=== PATIENT | female | born 1980 | race Caucasian/White ===

== ENCOUNTER 2019-09-11 11:24 | Outpatient (CLI) | payer MEDICARE, BC, MEDICAID ==
--- NOTE | 2019-09-11 11:54 | RAD ---
2 views chest: 09/11/2019 COMPARISON: None HISTORY: Cough FINDINGS: There is prominent dextroscoliosis of the lower thoracic spine with associated Underwood r ods extending from the upper thoracic spine through the lower lumbar spine. There is prominence of the cardiac silhouette which may in part be artifactual secondary to the distortion of the chest on t he basis of scoliosis. No pneumothorax or pleural fluid. No focal consolidation or alveolar edema. IMPRESSION: No radiographic evidence of acute cardiopulmonary disease.
== END 2019-09-11 11:25 | disposition home or self-care (01) ==
LOC: BICRAD 11:24
PROVIDERS: ATTEND Internal Medicine
DX: R05 Cough (principal)
CPT/HCPCS: 71046

== ENCOUNTER 2019-12-25 14:48 | Outpatient (CLI) | payer MEDICARE, BC, MEDICAID ==
--- NOTE | 2019-12-25 15:27 | RAD ---
Exam:3 views right ankle HISTORY: Pain. COMPARISON: None FINDINGS: Mild bony mineralization. Preserved joint spaces. Nonspecific soft tissue swelling. No eros charisse or destructive changes. IMPRESSION: 1. Soft tissue swelling. Diffuse bony mineralization. If there is concern for cellulitis/osteomyeliti s, consider MRI
--- NOTE | 2019-12-25 15:28 | RAD ---
XR Foot Rt 3 View STANDARD INDICATION: Right foot pain . COMPARISON: None. FINDINGS: Bones: There is a dorsal and medial impaction fracture involving distal aspect of the medial cuneifor m. The distal articular surface of the medial cuneiform is impacted approximately 4 mm. No additional fracture is evident. The toes of the second through fifth digits are held in flexion limit ing the exam. Joints: Joints spaces appear preserved. Lisfranc alignment: Lisfranc alignment appears within normal limits. Soft tissues: There is soft tissue swelling surrounding the forefoot and midfoot IMPRESSION: Medial cuneiform fracture of the right foot.
== END 2019-12-25 14:49 | disposition home or self-care (01) ==
LOC: BICRAD 14:48
PROVIDERS: ATTEND Physician Assistant
DX: M25.571 Pain in right ankle and joints of right foot (principal); M79.671 Pain in right foot; M25.474 Effusion, right foot; S92.241A Displaced fracture of medial cuneiform of right foot, initial encounter for closed fracture; M79.89 Other specified soft tissue disorders

== ENCOUNTER 2020-10-01 10:25 | Inpatient (IN) | payer BC, MEDICARE ==
--- NOTE | 2020-10-01 11:00 | RAD ---
Exam: Chest one view HISTORY:Evaluate for possible emergency dialysis Comparison: 09/11/2019 FINDINGS: Cardiac silhouette:Cardiomegaly. Aorta: Unremarkable Pulmonary vessels: Normal Costophrenic angles: Clear LUNGS: Chronic changes, without mass or consolidation. Pneumothorax: None Osseous abnormalities: Stable scoliosis with Underwood rods. IMPRESSION: No acute cardiopulmonary process.
[2020-10-01 11:51] LABS: #Eosinphils 0.1 thou/uL (0.0-0.7); #Monocytes 0.6 thou/uL (0.11-0.59); #Neutrophils 4.4 thou/uL (1.40-6.50); %Basophils 0.7 % (0.0-1.0); %Eosinophils 2.2 % (0.0-10.0); %Lymphocytes 16.1 % (21.0-51.0); %Monocytes 9.2 % (0.0-10.0); %Neutrophils 71.8 % (42.0-75.0); Hemoglobin 9.7 g/dL (12.0-16.0); Mean Corpuscular HGB CONC 32.3 g/dL (32.0-36.0); Mean Corpuscular Hemoglobin 30.6 pg (27.0-31.0); Mean Corpuscular Volume 94.8 fL (78.0-98.0); Mean Platelet Volume 6.4 fL (7.4-10.4); Platelet Count 210 thou/uL (130-400); RBC Distribution Width 11.7 % (11.5-14.5); Red Blood Cell (RBC) Count 3.16 mill/uL (4.20-5.40); White Blood Cell (WBC) Count 6.2 thou/uL (4.8-10.8)
[2020-10-01 12:21] LABS: Bacteria/HPF None Seen HPF (None Seen); Bilirubin Negative (Negative); Blood, Urine Negative (Negative); Clarity Clear (Clear); Glucose, Urine (Dipstick) Normal (Negative); Ketone, Urine Trace mg/dL (Negative); Leukocyte 25 Leu/uL (Negative); Nitrite Negative (Negative); Protein, Urine (Dipstick) Negative (Neg-Trace); RBC/HPF 0-3 HPF (0-3); Specific Gravity, Urine 1.006 (1.002-1.036); Squamous Epithelial 0-3 HPF (0-3); Urobilinogen Normal mg/dL (Less than 2); WBC/HPF 0-3 HPF (0-3)
[2020-10-01 12:36] LABS: Phosphorus 5.7 mg/dL (2.3-4.7)
[2020-10-01 12:37] LABS: ALT (SGPT) 44 U/L (8-55); AST (SGOT) 43 U/L (5-34); Albumin 4.4 g/dL (3.5-5.0); Alkaline Phosphatase 104 U/L (40-110); Anion Gap 15 mmol/L (10-20); BUN (Urea Nitrogen) 85 mg/dL (7.0-18.7); Bilirubin, Total 0.2 mg/dL (0.2-1.2); Calc. Creatinine Clearance 0 mL/min (70-130); Calcium 9.3 mg/dL (7.8-10.44); Carbon Dioxide 30 mmol/L (22-29); Chloride 97 mmol/L (98-107); Estimated GFR-MDRD 18; Globulin 4.1 g/dL (2.4-3.5); Glucose 113 mg/dL (70-105); Potassium 5.2 mmol/L (3.5-5.1); Protein, Total 8.5 g/dL (6.0-8.3); Sodium 137 mmol/L (136-145)
--- NOTE | 2020-10-01 19:49 | PDOC.HHP ---
Hospitalist HPI - History of Present Illness Referred by nephrology for emergency dialysis for History of Present Illness: This is a 39-year-old female patient with a history of Rett syndrome, CKD and hypertension who presents today with worsening renal function and referral for surgery for initiation of dialysis. Given her Rett syndrome, she does not communicate verbally at baseline. Her mother will give the history. She has been in her usual state of health but however since the past several years have developed worsening renal function and is followed by Dr. Ramirez her hand splitter. Dr. Ramirez actually decided the need for dialysis and therefore sent her here for surgical preparation. She otherwise has no acute concerns. At presentation her vitals were within normal limits, labs showed anemia of 9.7, potassium 5.2, creatinine 2.95 and bicarb of 30. Chest x-ray revealed no acute cardia pulmonary event. Dr. Ramirez hand splitter was consultedinformed Hospitalist team consulted to admit Hospitalist ROS - Review of Systems ROS unobtainable: due to mental status Hospitalist History - Past Medical History Other Medical History: Right syndrome, hypertension, CKD - Past Surgical History Other Surgical History: Surgery for kyphoscoliosis - Family History Family History: reports: no pertinent history - Social History Smoking Status: Never smoker Alcohol: reports: None Living Situation: With Family - Exam General - other findings: In bed, not in distress. Noncommunicative. Looks very small for age Eye: anicteric sclera Heart: RRR, no murmur, no gallops, no rubs Respiratory: no wheezes, no rales, no ronchi, normal chest expansion Gastrointestinal: soft, non-tender, non-distended, normal bowel sounds Extremities: no cyanosis, no clubbing, no edema Extremities - other findings: Upper limbs held in flexion. Lower limbs not well-developed. Psychiatric - other findings: Unable to communicate, Hospitalist Results - Labs Result Diagrams: 10/01/20 11:39 10/01/20 11:39 Lab results: WBC 6.2 thou/uL (4.8-10.8) 10/01/20 11:39 Hgb 9.7 g/dL (12.0-16.0) L 10/01/20 11:39 Hct 30.0 % (36.0-47.0) L 10/01/20 11:39 MCV 94.8 fL (78.0-98.0) 10/01/20 11:39 Plt Count 210 thou/uL (130-400) 10/01/20 11:39 Neutrophils % 71.8 % (42.0-75.0) 10/01/20 11:39 Sodium 137 mmol/L (136-145) 10/01/20 11:39 Potassium 5.2 mmol/L (3.5-5.1) H 10/01/20 11:39 Chloride 97 mmol/L (98-107) L 10/01/20 11:39 Carbon Dioxide 30 mmol/L (22-29) H 10/01/20 11:39 BUN 85 mg/dL (7.0-18.7) H 10/01/20 11:39 Creatinine 2.95 mg/dL (0.6-1.1) H 10/01/20 11:39 Glucose 113 mg/dL (70-105) H 10/01/20 11:39 Calcium 9.3 mg/dL (7.8-10.44) 10/01/20 11:39 Total Bilirubin 0.2 mg/dL (0.2-1.2) 10/01/20 11:39 AST 43 U/L (5-34) H 10/01/20 11:39 ALT 44 U/L (8-55) 10/01/20 11:39 Alkaline Phosphatase 104 U/L (40-110) 10/01/20 11:39 Troponin I Less than 0.010 ng/mL (< 0.028) 10/01/20 11:39 B-Natriuretic Peptide 11.4 pg/mL (0-100) 10/01/20 11:39 Serum Total Protein 8.5 g/dL (6.0-8.3) H 10/01/20 11:39 Albumin 4.4 g/dL (3.5-5.0) 10/01/20 11:39 Urine Ketones Trace mg/dL (Negative) A 10/01/20 11:55 Urine Blood Negative (Negative) 10/01/20 11:55 Urine Nitrite Negative (Negative) 10/01/20 11:55 Ur Leukocyte Esterase 25 Katlyn/uL (Negative) A 10/01/20 11:55 Urine RBC 0-3 HPF (0-3) 10/01/20 11:55 Urine WBC 0-3 HPF (0-3) 10/01/20 11:55 Ur Squamous Epith Cells 0-3 HPF (0-3) 10/01/20 11:55 Urine Bacteria None Seen HPF (None Seen) 10/01/20 11:55 Hospitalist H&P A/P - Plan Plan: This is a 39-year-old female with Rett syndrome, IgA and progressively worsening renal function referred here by her hand splitter for surgical evaluation and dialysis apparatus placement. Advanced stage renal disease. Elevated creatinine with GFR at 18. Creatinine 2.[address] Consult nephrology Hyperkalemia Potassium 5.2 Likely secondary to CKD RepeatBMP Anemia Secondary to CKD Monitor Hb VT prophylaxisLovenox CODE STATUSto discuss with parents
[2020-10-01] MEDS ORDERED: Atorvastatin Calcium 10 MG TAB PO SCH (22:30)
[2020-10-01] MEDS: Heparin 5,000 UNITS/ML VIAL SC SCH (23:07)
[2020-10-02] MEDS ORDERED: Tuberculin PPD 0.1 ML VIAL I-DERMAL SCH (06:00)
[2020-10-02 06:44] LABS: #Eosinphils 0.2 thou/uL (0.0-0.7); #Lymphocytes 1.5 thou/uL (1.20-3.40); #Monocytes 0.6 thou/uL (0.11-0.59); #Neutrophils 2.8 thou/uL (1.40-6.50); %Basophils 0.9 % (0.0-1.0); %Eosinophils 3.2 % (0.0-10.0); %Lymphocytes 29.6 % (21.0-51.0); %Monocytes 10.8 % (0.0-10.0); %Neutrophils 55.4 % (42.0-75.0); Hemoglobin 9.5 g/dL (12.0-16.0); Mean Corpuscular HGB CONC 32.5 g/dL (32.0-36.0); Mean Corpuscular Hemoglobin 31.2 pg (27.0-31.0); Mean Platelet Volume 6.3 fL (7.4-10.4); Platelet Count 212 thou/uL (130-400); RBC Distribution Width 11.6 % (11.5-14.5); Red Blood Cell (RBC) Count 3.03 mill/uL (4.20-5.40); White Blood Cell (WBC) Count 5.1 thou/uL (4.8-10.8)
[2020-10-02 07:06] LABS: Anion Gap 15 mmol/L (10-20); BUN (Urea Nitrogen) 84 mg/dL (7.0-18.7); Calc. Creatinine Clearance 16 mL/min (70-130); Calcium 8.8 mg/dL (7.8-10.44); Carbon Dioxide 28 mmol/L (22-29); Chloride 97 mmol/L (98-107); Estimated GFR-MDRD 16; Glucose 83 mg/dL (70-105); Potassium 4.8 mmol/L (3.5-5.1); Sodium 135 mmol/L (136-145)
[2020-10-02 07:26] LABS: Hep C IgG Ab Non-Reactive (NonReactive); Hep C Index 0.09 S/CO (0-0.79)
[2020-10-02] MEDS: Heparin 5,000 UNITS/ML VIAL SC SCH ×3 (09:11→21:41)
[2020-10-02] MEDS: hydrALAZINE 10 MG TAB PO SCH ×2 (12:04→21:29)
[2020-10-02] MEDS: OXcarbazepine 300 MG/5 ML UDCUP PO SCH ×4 (12:05→21:29)
[2020-10-02] MEDS: Polyethylene Glycol 3350 17 GM Packet PO SCH (12:09)
[2020-10-02 18:43] LABS: SARS-CoV-2 MS2 Positive; SARS-CoV-2 N Gene Negative; SARS-CoV-2 S Gene Negative; SARS-CoV-2 by NAA Not Detected (NotDetected); SARS-CoV-2 orf1ab Negative
[2020-10-02] MEDS: Atorvastatin Calcium 10 MG TAB PO SCH (21:29)
--- NOTE | 2020-10-02 22:48 | PDOC.HOSPP ---
- Subjective Encounter Date: 10/02/20 Encounter Time: 10:00 Subjective: Patient was seen and examined in bed. She was in the room with her father she was generally asleep. No significant issues overnight per - Objective Vital Signs & Weight: Vital Signs (12 hours) Temp Pulse Resp BP BP Pulse Ox 10/02/20 16:00 97.5 F L 66 20 117/70 100 10/02/20 12:04 69 10/02/20 11:47 97.5 F L 69 20 128/79 Weight Weight 91 lb 12.808 oz I&O: 10/01/20 10/02/20 10/03/20 06:59 06:59 06:59 Intake Total 240 360 Balance 240 360 Result Diagrams: 10/02/20 06:11 10/02/20 06:11 Hospitalist ROS - Medication Medications: Active Medications Generic Name Dose Route Start Last Admin Trade Name Freq PRN Reason Stop Dose Admin Atorvastatin Calcium 10 mg 10/02/20 21:00 10/02/20 21:29 Atorvastatin Calcium 10 Mg Tab PO 10 mg HS ROMELIA Administration Captopril 25 mg 10/02/20 09:00 10/02/20 21:29 Captopril 25 Mg Tab PO 25 mg BID ROMELIA Administration Heparin Sodium (Porcine) 5,000 units 10/01/20 21:00 10/02/20 21:41 Heparin 5,000 Units/Ml Vial SC Not Given TID ROMELIA Hydralazine HCl 10 mg 10/02/20 09:00 10/02/20 21:29 Hydralazine 10 Mg Tab PO 10 mg BID ROMELIA Administration Oxcarbazepine 360 mg 10/02/20 09:00 10/02/20 12:05 Oxcarbazepine 300 Mg/5 Ml Udcup PO Not Given 0900 ROMELIA Oxcarbazepine 180 mg 10/02/20 12:00 10/02/20 13:48 Oxcarbazepine 300 Mg/5 Ml Udcup PO 180 mg 1200 ROMELIA Administration Oxcarbazepine 120 mg 10/02/20 16:00 10/02/20 16:32 Oxcarbazepine 300 Mg/5 Ml Udcup PO 120 mg 1600 ROMELIA Administration Oxcarbazepine 390 mg 10/02/20 22:00 10/02/20 21:29 Oxcarbazepine 300 Mg/5 Ml Udcup PO 390 mg 2200 ROMELIA Administration Polyethylene Glycol 17 gm 10/02/20 09:00 10/02/20 12:09 Polyethylene Glycol 3350 17 Gm Packet PO Not Given DAILY ROMELIA - Exam General Appearance: awake alert Heart: RRR, no murmur, no gallops, no rubs Respiratory: no wheezes, no rales, no ronchi, no tachypnea Gastrointestinal: soft, non-distended, normal bowel sounds Extremities: no cyanosis, no clubbing, no edema Psychiatric - other findings: Patient asleep. Hosp A/P - Plan 39-year-old female patient here for syndrome on admission to be prepared for surgery for peritoneal dialysis initiation. We will await input from nephrology and surgery on preparation. Stage IV CKD Creatinine increased elevated from 2.95-3.17 We will continue monitoring Appreciate nephrology input. Hyperkalemia Resolved Rett syndrome Stable
[2020-10-03 05:59] LABS: #Eosinphils 0.2 thou/uL (0.0-0.7); #Lymphocytes 1.7 thou/uL (1.20-3.40); #Monocytes 0.6 thou/uL (0.11-0.59); #Neutrophils 3.3 thou/uL (1.40-6.50); %Basophils 0.5 % (0.0-1.0); %Eosinophils 2.8 % (0.0-10.0); %Lymphocytes 29.3 % (21.0-51.0); %Monocytes 9.8 % (0.0-10.0); %Neutrophils 57.6 % (42.0-75.0); Hemoglobin 8.8 g/dL (12.0-16.0); Mean Corpuscular HGB CONC 33.5 g/dL (32.0-36.0); Mean Corpuscular Hemoglobin 31.4 pg (27.0-31.0); Mean Corpuscular Volume 93.9 fL (78.0-98.0); Mean Platelet Volume 6.3 fL (7.4-10.4); Platelet Count 207 thou/uL (130-400); RBC Distribution Width 11.4 % (11.5-14.5); Red Blood Cell (RBC) Count 2.81 mill/uL (4.20-5.40); White Blood Cell (WBC) Count 5.8 thou/uL (4.8-10.8)
[2020-10-03 06:17] LABS: Anion Gap 17 mmol/L (10-20); BUN (Urea Nitrogen) 87 mg/dL (7.0-18.7); Calc. Creatinine Clearance 14 mL/min (70-130); Calcium 8.5 mg/dL (7.8-10.44); Carbon Dioxide 25 mmol/L (22-29); Chloride 96 mmol/L (98-107); Estimated GFR-MDRD 15; Glucose 86 mg/dL (70-105); Potassium 4.2 mmol/L (3.5-5.1); Sodium 134 mmol/L (136-145)
--- NOTE | 2020-10-03 08:48 | ULT ---
ULTRASOUND ABDOMEN COMPLETE: DATE: 10/03/2020 HISTORY: 39-year-old female with chronic kidney disease and anemia. Peritoneal dialysis catheter placement. Ev aluate for ascites. TECHNIQUE: Grayscale ultrasound evaluation of the liver, gallbladder, spleen, pancreas, common duct, kidneys, ab dominal aorta, and inferior vena cava (IVC). FINDINGS: Peritoneal dialysis catheter not identified. Abutting the posterior surface of the urinary bladder, there is a 4 x 6 cm fluid-filled structure. Th is is questionable for a very fluid dilated endometrial cavity. There is a small amount of fluid in the left perirenal space. Otherwise no other evidence of ascites. Bilateral renal parenchyma is diffusely abnormally increased in echogenicity representing medical sakina al disease. Right kidney is 6.5 x 3.5 x 3 cm. Left kidney is 6.5 x 3.5 x 3 cm. No hydronephrosis. Gallbladder surgically absent. No hepatomegaly. Hepatic echogenicity within normal limits. No sonographic pancreatic abnormality identified. Common duct 3 mm. No splenomegaly. IMPRESSION: 1) other than what appears to be a very small amount of fluid in the left perirenal space, no ascites is identified. 2) a fluid-filled structure posterior to the urinary bladder. Exact etiology is uncertain, but one po ssibility is endometrial cavity dilated and filled with fluid. Recommend further evaluation with dedicated pelvic and transvaginal ultrasound. 3) evidence for chronic renal failure. 4) status post cholecystectomy.
[2020-10-03] MEDS: Heparin 5,000 UNITS/ML VIAL SC SCH ×3 (09:00→22:58)
[2020-10-03] MEDS: Polyethylene Glycol 3350 17 GM Packet PO SCH (09:00)
[2020-10-03] MEDS: hydrALAZINE 10 MG TAB PO SCH ×2 (09:00→22:44)
[2020-10-03] MEDS: OXcarbazepine 300 MG/5 ML UDCUP PO SCH ×5 (09:00→22:42)
--- NOTE | 2020-10-03 09:25 | ULT ---
ULTRASOUND VENOUS MAPPING UPPER EXTREMITIES BILATERAL: DATE: 10/03/2020 HISTORY: 39-year-old female with End-stage renal disease. Surgical planning study for creation of arteriovenou s fistula for hemodialysis. FINDINGS: RIGHT: Brachial artery:3 mm Radial artery:2 mm Ulnar artery:2 mm Cephalic vein: Proximal arm: 2 mm Mid arm: 2 mm Distal arm: 2.5 mm Antecubital: 3.5 mm Proximal forearm: 2 mm Mid forearm: 2 mm Distal forearm: 2 mm Basilic vein: Proximal arm: 3.5 mm Mid arm: 4 mm Distal arm: 2.5 mm Antecubital: 2.5 mm Proximal forearm: 3 mm Mid forearm: 2 mm Distal forearm: 2. mm LEFT: Brachial artery:3 mm Radial artery:1.5 mm Ulnar artery:2 mm Cephalic vein: Proximal arm: 3 mm Mid arm: 2.5 mm Distal arm: 1.5 mm Antecubital: 4.5 mm Proximal forearm: 2 mm Mid forearm: 1.5 mm Distal forearm: 1 mm Basilic vein: Proximal arm: 3 mm Mid arm: 3 mm Distal arm: 2.5 mm Antecubital: 2 mm Proximal forearm: 3 mm Mid forearm: 1.5 mm Distal forearm: 1.5 mm IMPRESSION: Basilic veins of the proximal and mid arms are 3 mm in caliber or larger, right side greater than lef t.
[2020-10-03] MEDS ORDERED: Rocuronium Bromide 10 MG/ML (10ML VIAL) ONE (10:30)
[2020-10-03] MEDS ORDERED: Dexamethasone 20 MG/5 ML VIAL ONE (10:30)
[2020-10-03] MEDS ORDERED: ePHEDrine 50 MG/ML VIAL ONE (10:30)
[2020-10-03] MEDS ORDERED: PROPOFOL 200 MG/20 ML VIAL ONE (10:30)
[2020-10-03] MEDS ORDERED: Glycopyrrolate 0.2 MG/ML 5 ML SYRINGE ONE (10:30)
[2020-10-03] MEDS ORDERED: Ondansetron PF 4 MG/2 ML Vial ONE (10:30)
[2020-10-03] MEDS ORDERED: PHENYLEPHRINE-NS 100 MCG/ML 10 ML SYRINGE ONE (10:30)
[2020-10-03] MEDS ORDERED: Lidocaine 1% PF 5 ML VIAL ONE (10:30)
--- NOTE | 2020-10-03 14:59 | CON ---
DATE OF CONSULTATION: HISTORY OF PRESENT ILLNESS: Inna Yarbrough is a 39-year-old female with Rett syndrome, who is well known to me. I last saw her in the past and performed a laparoscopic cholecystectomy in March 2013. She now presents with progressive kidney disease. Dr. Aren Ramirez has asked me to see her regarding dialysis access. The patient has had ultrasound vein mapping in both arms demonstrating adequate cephalic vein in the right arm and the left arm for a primary fistula. I have been asked to see regarding this placement of a hemodialysis catheter to initiate dialysis and placement of laparoscopic peritoneal dialysis catheter and I suggest the family they consider fistula. We would plan left arm fistula. We would not plan to place a prosthetic graft. Risks and benefits of surgery have been discussed and they consents. ALLERGIES: NONE. SOCIAL HISTORY: Tobacco, none. Alcohol, none. MEDICATIONS: 1. MiraLAX. 2. Atorvastatin. 3. Hydralazine. 4. Captopril. 5. Trileptal. PAST MEDICAL HISTORY: Rett syndrome, seizure disorder, history of cholecystectomy performed by me in 2012, hypertension, chronic kidney disease. PAST SURGICAL HISTORY: Laparoscopic cholecystectomy in the past, kyphoscoliosis surgery. REVIEW OF SYSTEMS: Ten-point noncontributory. PHYSICAL EXAMINATION: VITAL SIGNS: 4 foot, 91 pounds. 97.5, 69, 123/79. HEAD, EARS, EYES, NOSE, AND THROAT: Unremarkable. LUNGS: Clear to auscultation. CARDIAC: Rhythm. No murmur or gallop. ABDOMEN: Soft, nontender. Palpable radial pulses bilaterally. EXTREMITIES: Unremarkable. No hernia in the abdomen. ASSESSMENT: End-stage renal disease. PLAN: Placement of a hemodialysis catheter, laparoscopic peritoneal dialysis catheter and would recommend a left arm fistula. I have discussed with the family and they concur. We will plan this today. They understand the risks and benefits and consents. Job ID: [id number]
[2020-10-03 15:42] LABS: HBSAB Concentration Less than 8.00 mIU/mL; HBSAg Index 0.13 S/CO (0-0.99); Hep B Core Total Ab Non-Reactive (NonReactive); Hep B Surf AB Non-Reactive (NonReactive); Hep B Surf Ag Non-Reactive S/CO (NonReactive); Hep C IgG Ab Non-Reactive (NonReactive); Hep C Index 0.08 S/CO (0-0.79)
[2020-10-03] MEDS ORDERED: Fentanyl 100 MCG/2 ML VIAL ONE ×3 (19:06→19:30)
[2020-10-03] MEDS ORDERED: Midazolam HCl 2 mg/2 ml Vial ONE (19:06)
[2020-10-03] MEDS ORDERED: Heparin 10,000 UNITS/ 10 ML VIAL ONE (19:14)
[2020-10-03] MEDS ORDERED: Heparin 5,000 UNITS/ML VIAL ONE (19:14)
[2020-10-03] MEDS ORDERED: Bupivacaine 0.25% HCL 30 ML VIAL ONE (19:14)
[2020-10-03] MEDS ORDERED: Lidocaine 1% w/Epinephrine 1:100K 20 ML VIAL ONE (19:14)
[2020-10-03] MEDS ORDERED: Sodium Chloride 0.9% 30 ML ONE (19:14)
[2020-10-03] MEDS ORDERED: Acetaminophen 500 MG TAB PO PRN (19:16)
[2020-10-03] MEDS ORDERED: Protamine Sulfate 50 MG/5 ML VIAL ONE (21:00)
[2020-10-03] MEDS ORDERED: Ondansetron HCl/PF 4 MG/2 ML Vial IVP PRN (21:42)
--- NOTE | 2020-10-03 21:58 | RAD ---
EXAM: Single view of the chest HISTORY: Central line placement COMPARISON: 10/01/2020 FINDINGS: Single view of the chest shows an enlarged but stable cardiomediastinal silhouette. A new right IJ dialysis catheter seen with its tip in the superior vena cava. No pneumothorax is seen. There is no evidence of consolidation, mass, or pleural effusion. Scoliotic curvature and rods are se en in the spine. IMPRESSION: Status post central line placement without evidence of complication.
[2020-10-03] MEDS: Atorvastatin Calcium 10 MG TAB PO SCH (22:44)
[2020-10-03] MEDS: traMADol HCl 50 MG TAB PO PRN (22:46)
--- NOTE | 2020-10-03 22:53 | OP ---
DATE OF PROCEDURE: 10/03/2020 PREOPERATIVE DIAGNOSES: Rett syndrome, end-stage renal disease. POSTOPERATIVE DIAGNOSES: Rett syndrome, end-stage renal disease. PROCEDURES PERFORMED: Right IJ cuffed tunneled hemodialysis catheter, ultrasound and fluoroscopy use. Laparoscopic peritoneal dialysis catheter, laparoscopic omentopexy. Left arm primary fistula, perforating branch antecubital vein to the proximal radial artery outflow primarily the cephalic vein, secondarily the basilic vein, upper arm, 3 mm coronary dilator. Note small radial artery. ANESTHESIA: General, local 0.25% Marcaine 30 mL mixed with 1% Xylocaine with epinephrine. DESCRIPTION OF PROCEDURE: Patient was taken to the operating room, where under general anesthesia, neck and chest and left upper extremity, axilla prepared with ChloraPrep and draped in routine fashion. Ultrasound was used to localize the right internal jugular vein, cannulated with a trocar catheter, J-wire threaded, trocar catheter removed. Skin site was enlarged sharply, stab incision made with the right chest planned exit site and a cuffed tunneled hemodialysis catheter tunneled between the 2 incisions, placed the fabric cuff, beneath the skin exit site catheter secured with 2 interrupted suture of 3-0 nylon. Sterile dressing applied. Small and medium size dilators placed with J-wire into the internal jugular vein, removed. Dilator and Peel-Away sheath placed over the J-wire in superior vena cava and J-wire and dilator removed. Catheter placed with Peel-Away sheath. Peel-Away sheath removed. Platysma was approximated with 4-0 Monocryl, skin with subdermal 4-0 Monocryl, and [place] glue applied. Each port aspirated of blood and flushed with saline solution, heparinized solution 1000 units of heparin per mL, indicating volume of the port. Final fluoroscopic images revealed good line placement. Bilateral far lateral subcostal incision made, pneumoperitoneum to 15 mmHg obtained with Veress needle, replaced with a 5 port laparoscope inserted. Contralateral 5 port placed under laparoscopic visualization subcostal. Omentopexy performed with 0 Vicryl GraNee needle transabdominal wall fixation. The peritoneal dialysis catheter double cuffed pigtail placed by placing an 8 mm port through the counter incision, umbilical level, right lower quadrant, directing the subcutaneous tissues to the rectus sheath, visualized laparoscopically, penetrating the peritoneum dependently threading the peritoneal dialysis catheter, placing the internal cuff in the rectus sheath, removed 8 mm port. Planned exit site stab incision made right lower quadrant lateral to the counter incision and inferiorly and a [place] dissector inserted to the counter incision, grasping the catheter and pulling out, placed the fabric cuff beneath the skin exit site. Subcutaneous tissue was approximated with 3-0 Monocryl, skin with subdermal 4-0 Monocryl and [place] glue applied. A cap was placed on the PD catheter and flushed with heparinized saline solution 1000 units of heparin per mL 8 mL. Good hemostasis noted. There was pneumoperitoneum reduced. All instruments moved. All skin incisions approximated with interrupted subdermal 4-0 Monocryl and [place] glue and sterile dressings applied and dressings placed to the PD catheter. Attention was made in the proximal volar forearm just below the antecubital fossa, carried down the skin, subcutaneous tissue, and perforating branch antecubital vein dissected free. Branches were divided between clips and spatulated over branch points. The patient given 5000 units of heparin intravenously. Proximal radial artery dissected free with small, nonetheless was clamped proximally and distally. After adequate circulation time, longitudinal arteriotomy made sharply, elongated with the Natarajan scissors. These perforating branch antecubital vein spatulated over branch points have been interrogated with coronary dilators, passing coronary dilators from a 1.5 to a 3 mm coronary dilator. It was flushed with heparinized saline solution and perforating branch antecubital vein to side proximal artery anastomosis created with continuous suture of 6-0 Prolene. Vascular clamps released. There was good flow in the fistula with good Doppler signals in cephalic vein outflow and also basilic vein. Anatomically, the cephalic vein was favored. Hemostasis noted. The patient was given 40 mg of protamine by Anesthesia. Good hemostasis noted. Subcutaneous tissue was approximated with 3-0 Monocryl, skin with subdermal 4-0 Monocryl, and [place] glue applied. Patient tolerated the procedure well. Job ID: [id number]
--- NOTE | 2020-10-03 23:05 | PDOC.HOSPP ---
- Subjective Encounter Date: 10/03/20 Encounter Time: 09:00 Subjective: Patient was seen and examined in bed. She was sleeping at the time of my evaluation. Her parents were in the room with her. They noted no significant events overnight. - Objective Vital Signs & Weight: Vital Signs (12 hours) Temp Pulse Resp BP Pulse Ox 10/03/20 15:17 97.5 F L 64 20 109/66 100 10/03/20 12:02 97.5 F L 69 20 123/79 100 Weight Weight 91 lb 12.808 oz I&O: 10/02/20 10/03/20 10/04/20 06:59 06:59 06:59 Intake Total 240 360 Balance 240 360 Result Diagrams: 10/05/20 08:30 10/04/20 07:53 Hospitalist ROS - Medication Medications: Active Medications Generic Name Dose Route Start Last Admin Trade Name Freq PRN Reason Stop Dose Admin Atorvastatin Calcium 10 mg 10/02/20 21:00 10/03/20 22:44 Atorvastatin Calcium 10 Mg Tab PO 10 mg HS ROMELIA Administration Captopril 25 mg 10/02/20 09:00 10/03/20 22:44 Captopril 25 Mg Tab PO 25 mg BID ROMELIA Administration Heparin Sodium (Porcine) 5,000 units 10/01/20 21:00 10/03/20 22:58 Heparin 5,000 Units/Ml Vial SC Not Given TID ROMELIA Hydralazine HCl 10 mg 10/02/20 09:00 10/03/20 22:44 Hydralazine 10 Mg Tab PO 10 mg BID ROMELIA Administration Oxcarbazepine 360 mg 10/02/20 09:00 10/03/20 10:44 Oxcarbazepine 300 Mg/5 Ml Udcup PO 360 mg 0900 ROMELIA Administration Oxcarbazepine 180 mg 10/02/20 12:00 10/03/20 12:31 Oxcarbazepine 300 Mg/5 Ml Udcup PO 180 mg 1200 ROMELIA Administration Oxcarbazepine 120 mg 10/02/20 16:00 10/03/20 16:52 Oxcarbazepine 300 Mg/5 Ml Udcup PO Not Given 1600 ROMELIA Oxcarbazepine 390 mg 10/02/20 22:00 10/03/20 22:42 Oxcarbazepine 300 Mg/5 Ml Udcup PO 390 mg 2200 ROMELIA Administration Polyethylene Glycol 17 gm 10/02/20 09:00 10/03/20 09:00 Polyethylene Glycol 3350 17 Gm Packet PO Not Given DAILY ROMELIA Tramadol HCl 50 mg 10/03/20 19:16 10/03/20 22:46 Tramadol Hcl 50 Mg Tab PO 50 mg Q4H PRN Administration Pain 1-5 - Exam General - other findings: Patient asleep Heart: RRR, no murmur, no gallops, normal peripheral pulses Respiratory: no wheezes, no rales, normal chest expansion Gastrointestinal: soft, non-tender, non-distended, normal bowel sounds Extremities: no cyanosis, no clubbing, no edema Neurological - other findings: Patient not communicative. Hosp A/P - Plan 39-year-old female patient here for syndrome on admission to be prepared for surgery for peritoneal dialysis initiation. Plan is to have surgery later this afternoon. Of note she had a positive urine culture however UA was generally sterile but for mildly elevated leukocyte esterase. No WBCs no nitrites and no bacteria. I did not evaluate that as significant for UTI and did not start antibiotic treatment. Stage IV CKD Creatinine increased elevated from 2.95-3.17 We will continue monitoring Appreciate nephrology input. Hyperkalemia Resolved Rett syndrome Stable Addendum: Patient was seen postop dialysis catheter, fistula placement. She tolerated the procedure well and was comfortable in bed. We will continue observing closely overnight.
[2020-10-04] MEDS: Acetaminophen 650 MG/20.3 ML UDCUP PO PRN ×3 (02:05→20:50)
[2020-10-04] MEDS ORDERED: READ PPD TEST SITE PO SCH (06:00)
[2020-10-04 08:13] LABS: #Lymphocytes 1.1 thou/uL (1.20-3.40); #Monocytes 1.1 thou/uL (0.11-0.59); %Basophils 0.2 % (0.0-1.0); %Eosinophils 0.2 % (0.0-10.0); %Lymphocytes 11.8 % (21.0-51.0); %Monocytes 11.5 % (0.0-10.0); %Neutrophils 76.4 % (42.0-75.0); Hemoglobin 7.7 g/dL (12.0-16.0); Mean Corpuscular HGB CONC 33.3 g/dL (32.0-36.0); Mean Corpuscular Hemoglobin 31.7 pg (27.0-31.0); Mean Corpuscular Volume 95.1 fL (78.0-98.0); Mean Platelet Volume 6.2 fL (7.4-10.4); Platelet Count 207 thou/uL (130-400); RBC Distribution Width 11.4 % (11.5-14.5); Red Blood Cell (RBC) Count 2.43 mill/uL (4.20-5.40); White Blood Cell (WBC) Count 9.2 thou/uL (4.8-10.8)
[2020-10-04 08:27] LABS: Anion Gap 17 mmol/L (10-20); BUN (Urea Nitrogen) 92 mg/dL (7.0-18.7); Calc. Creatinine Clearance 14 mL/min (70-130); Calcium 8.1 mg/dL (7.8-10.44); Carbon Dioxide 22 mmol/L (22-29); Chloride 100 mmol/L (98-107); Estimated GFR-MDRD 14; Glucose 83 mg/dL (70-105); Potassium 4.6 mmol/L (3.5-5.1); Sodium 134 mmol/L (136-145)
[2020-10-04] MEDS: hydrALAZINE 10 MG TAB PO SCH (09:35)
[2020-10-04] MEDS: OXcarbazepine 300 MG/5 ML UDCUP PO SCH ×4 (09:36→20:49)
[2020-10-04] MEDS: Polyethylene Glycol 3350 17 GM Packet PO SCH (09:36)
[2020-10-04] MEDS: Heparin 5,000 UNITS/ML VIAL SC SCH ×3 (09:36→21:15)
--- NOTE | 2020-10-04 13:53 | PDOC.HOSPP ---
- Subjective Encounter Date: 10/04/20 Encounter Time: 09:45 Subjective: is sleeping, parents at bedside not in distress is non verbal per parents - Objective Vital Signs & Weight: Vital Signs (12 hours) Temp Pulse Resp BP BP BP Pulse Ox 10/04/20 11:14 99.7 F H 78 12 92/53 L 93 L 10/04/20 09:48 82 10/04/20 09:35 82 96/58 L 10/04/20 09:25 94 L 10/04/20 07:37 98.3 F 82 16 96/58 L 10/04/20 04:00 98.2 F 81 20 92/57 L 92 L Weight Weight 91 lb 12.808 oz I&O: 10/03/20 10/04/20 10/05/20 06:59 06:59 06:59 Intake Total 360 50 Balance 360 50 Result Diagrams: 10/04/20 07:53 10/04/20 07:53 Hospitalist ROS - Medication Medications: Active Medications Generic Name Dose Route Start Last Admin Trade Name Freq PRN Reason Stop Dose Admin Acetaminophen 1,000 mg 10/04/20 01:36 10/04/20 09:50 Acetaminophen 650 Mg/20.3 Ml Udcup PO 1,000 mg Q6H PRN Administration Moderate to Severe Pain (6-10) Atorvastatin Calcium 10 mg 10/02/20 21:00 10/03/20 22:44 Atorvastatin Calcium 10 Mg Tab PO 10 mg HS ROMELIA Administration Heparin Sodium (Porcine) 5,000 units 10/01/20 21:00 10/04/20 09:36 Heparin 5,000 Units/Ml Vial SC 5,000 units TID ROMELIA Administration Oxcarbazepine 360 mg 10/02/20 09:00 10/04/20 09:36 Oxcarbazepine 300 Mg/5 Ml Udcup PO 360 mg 0900 ROMELIA Administration Oxcarbazepine 180 mg 10/02/20 12:00 10/04/20 13:02 Oxcarbazepine 300 Mg/5 Ml Udcup PO 180 mg 1200 ROMELIA Administration Oxcarbazepine 120 mg 10/02/20 16:00 10/03/20 16:52 Oxcarbazepine 300 Mg/5 Ml Udcup PO Not Given 1600 ROMELIA Oxcarbazepine 390 mg 10/02/20 22:00 10/03/20 22:42 Oxcarbazepine 300 Mg/5 Ml Udcup PO 390 mg 2200 ROMELIA Administration Polyethylene Glycol 17 gm 10/02/20 09:00 10/04/20 09:36 Polyethylene Glycol 3350 17 Gm Packet PO Not Given DAILY ROMELIA Tramadol HCl 50 mg 10/03/20 19:16 10/03/20 22:46 Tramadol Hcl 50 Mg Tab PO 50 mg Q4H PRN Administration Pain 1-5 - Exam Eye: anicteric sclera ENT: no oropharyngeal lesions, moist mucosa Neck: supple, no JVD Heart: RRR, no murmur Respiratory: no wheezes, no rales Gastrointestinal: soft, non-tender, non-distended, normal bowel sounds Gastrointestinal - other findings: PD cath+ Extremities: no cyanosis, no edema Neurological: cranial nerve grossly intact, no new deficit Hosp A/P (1) Acute on chronic renal failure Code(s): N17.9 - ACUTE KIDNEY FAILURE, UNSPECIFIED; N18.9 - CHRONIC KIDNEY DISEASE, UNSPECIFIED Status: Acute (2) Chronic anemia Code(s): D64.9 - ANEMIA, UNSPECIFIED Status: Chronic (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 (4) HTN (hypertension) Code(s): I10 - ESSENTIAL (PRIMARY) HYPERTENSION Status: Chronic Qualifiers: Hypertension type: essential hypertension Qualified Code(s): I10 - Essential (primary) hypertension (5) FTT (failure to thrive) in adult Status: Chronic - Plan is s/p placement of tunnelled HD cath, peritoneal dialysis cath and fistula in left forearm 10/03 will be going for her first HD treatment today parents are worried she may not eat bcos of pain from right tunnelled cath in the neck area, I have reassured them, they will try feeding when she wakes up hold antihtn meds with sbp trending in the 90-100 range, watch for hypotension during HD continue lipitor, trileptal as before d/w parents at bedside
[2020-10-04] MEDS ORDERED: Heparin 10,000 UNITS/ 10 ML VIAL ONE (14:57)
--- NOTE | 2020-10-04 15:25 | PRG ---
DATE OF SERVICE: 10/04/2020 Inna Yarbrough is doing well today. She is undergoing dialysis. Her dialysis catheter is working well. Her dressing from her peritoneal dialysis catheter right lower abdomen is clean and dry. This dressing should be left intact. She should see the peritoneal dialysis nurse as an outpatient 3 to 5 days postoperatively for dressing changes, flushing of the catheter, and begin education on use with . Her left arm fistula has a good thrill and bruit. She had a left arm fistula has an inflow proximal radial artery, which was small, but the outflow was cephalic vein for anatomic consideration secondary to the basilic vein. At this point, I should see her in the office in 4 to 5 weeks. I will see her as needed this hospitalization. Plan would be to leave the right lower quadrant dressing intact until she sees the outpatient dialysis nurse. Job ID: [id number]
[2020-10-04] MEDS: Atorvastatin Calcium 10 MG TAB PO SCH (21:17)
[2020-10-05 08:48] LABS: #Eosinphils 0.2 thou/uL (0.0-0.7); #Lymphocytes 1.9 thou/uL (1.20-3.40); #Monocytes 1.3 thou/uL (0.11-0.59); #Neutrophils 6.2 thou/uL (1.40-6.50); %Basophils 0.4 % (0.0-1.0); %Eosinophils 1.6 % (0.0-10.0); %Lymphocytes 20.1 % (21.0-51.0); %Monocytes 13.6 % (0.0-10.0); %Neutrophils 64.3 % (42.0-75.0); Hemoglobin 7.6 g/dL (12.0-16.0); Mean Corpuscular Hemoglobin 30.5 pg (27.0-31.0); Mean Corpuscular Volume 95.2 fL (78.0-98.0); Mean Platelet Volume 6.1 fL (7.4-10.4); Platelet Count 216 thou/uL (130-400); RBC Distribution Width 11.5 % (11.5-14.5); Red Blood Cell (RBC) Count 2.49 mill/uL (4.20-5.40); White Blood Cell (WBC) Count 9.6 thou/uL (4.8-10.8)
[2020-10-05] MEDS: Polyethylene Glycol 3350 17 GM Packet PO SCH (09:00)
[2020-10-05] MEDS: Heparin 5,000 UNITS/ML VIAL SC SCH ×3 (09:00→21:04)
[2020-10-05] MEDS: OXcarbazepine 300 MG/5 ML UDCUP PO SCH ×4 (09:01→21:59)
[2020-10-05 09:13] LABS: Anion Gap 17 mmol/L (10-20); BUN (Urea Nitrogen) 57 mg/dL (7.0-18.7); Calc. Creatinine Clearance 15 mL/min (70-130); Calcium 8.6 mg/dL (7.8-10.44); Carbon Dioxide 23 mmol/L (22-29); Chloride 102 mmol/L (98-107); Estimated GFR-MDRD 16; Glucose 89 mg/dL (70-105); Potassium 4.6 mmol/L (3.5-5.1); Sodium 137 mmol/L (136-145)
--- NOTE | 2020-10-05 13:41 | RAD ---
Exam: Chest one view HISTORY:Evaluate for infiltrate Comparison: 10/03/2020 FINDINGS: Cardiac silhouette:Cardiomegaly. Aorta: Unremarkable Pulmonary vessels: Normal Costophrenic angles: Clear LUNGS: Increased density projecting over the left cardiac silhouette. Left lower lobe infiltrate steve ot be excluded. Lateral chest radiograph is recommended. Pneumothorax: None Osseous abnormalities: Diffuse bony mineralization. Stable scoliosis with Underwood rods. Additional findings: Stable right-sided HemoSplit dialysis catheter. Moderate gastric distention of t he stomach. IMPRESSION: 1. Possible left lower lobe infiltrate. Lateral chest radiograph is recommended. Additional findings as above.
[2020-10-05] MEDS: Albuterol Sulfate 1.25 MG/3 ML NEB NEB SCH ×2 (13:53→23:02)
--- NOTE | 2020-10-05 14:15 | PDOC.HOSPP ---
- Subjective Encounter Date: 10/05/20 Encounter Time: 09:15 non-verbal Subjective: awake, smiles has cough+ father at bedside - Objective Vital Signs & Weight: Vital Signs (12 hours) Temp Pulse Resp BP BP BP Pulse Ox 10/05/20 13:53 73 16 10/05/20 12:00 97.9 F 73 16 114/71 10/05/20 08:00 98.5 F 74 14 103/65 96 10/05/20 04:00 98.0 F 80 20 107/69 95 Weight Weight 91 lb 12.808 oz I&O: 10/04/20 10/05/20 10/06/20 06:59 06:59 06:59 Intake Total 50 80 Balance 50 80 Result Diagrams: 10/05/20 08:30 10/05/20 08:30 Hospitalist ROS - Medication Medications: Active Medications Generic Name Dose Route Start Last Admin Trade Name Freq PRN Reason Stop Dose Admin Acetaminophen 1,000 mg 10/04/20 01:36 10/04/20 20:50 Acetaminophen 650 Mg/20.3 Ml Udcup PO 1,000 mg Q6H PRN Administration Moderate to Severe Pain (6-10) Albuterol Sulfate 1.25 mg 10/05/20 15:00 10/05/20 13:53 Albuterol Sulfate 1.25 Mg/3 Ml Neb NEB 1.25 mg [id number] ROMELIA Administration Atorvastatin Calcium 10 mg 10/02/20 21:00 10/04/20 21:17 Atorvastatin Calcium 10 Mg Tab PO 10 mg HS ROMELIA Administration Heparin Sodium (Porcine) 5,000 units 10/01/20 21:00 10/05/20 09:00 Heparin 5,000 Units/Ml Vial SC 5,000 units TID ROMELIA Administration Oxcarbazepine 360 mg 10/02/20 09:00 10/05/20 09:01 Oxcarbazepine 300 Mg/5 Ml Udcup PO 360 mg 0900 ROMELIA Administration Oxcarbazepine 180 mg 10/02/20 12:00 10/05/20 13:39 Oxcarbazepine 300 Mg/5 Ml Udcup PO 180 mg 1200 ROMELIA Administration Oxcarbazepine 120 mg 10/02/20 16:00 10/04/20 17:11 Oxcarbazepine 300 Mg/5 Ml Udcup PO 120 mg 1600 ROMELIA Administration Oxcarbazepine 390 mg 10/02/20 22:00 10/04/20 20:49 Oxcarbazepine 300 Mg/5 Ml Udcup PO 390 mg 2200 ROMELIA Administration Polyethylene Glycol 17 gm 10/02/20 09:00 10/05/20 09:00 Polyethylene Glycol 3350 17 Gm Packet PO Not Given DAILY ROMELIA Tramadol HCl 50 mg 10/03/20 19:16 10/03/20 22:46 Tramadol Hcl 50 Mg Tab PO 50 mg Q4H PRN Administration Pain 1-5 - Exam General Appearance: awake alert Eye: PERRL, anicteric sclera ENT: no oropharyngeal lesions, moist mucosa Neck: supple, no JVD Heart: RRR, no murmur Respiratory: no wheezes, rhonchi Gastrointestinal: soft, non-tender, non-distended, normal bowel sounds Extremities: no cyanosis, no edema Neurological: cranial nerve grossly intact, no new deficit Hosp A/P (1) Acute on chronic renal failure Code(s): N17.9 - ACUTE KIDNEY FAILURE, UNSPECIFIED; N18.9 - CHRONIC KIDNEY DISEASE, UNSPECIFIED Status: Acute (2) Chronic anemia Code(s): D64.9 - ANEMIA, UNSPECIFIED Status: Chronic (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 (4) HTN (hypertension) Code(s): I10 - ESSENTIAL (PRIMARY) HYPERTENSION Status: Chronic Qualifiers: Hypertension type: essential hypertension Qualified Code(s): I10 - Essential (primary) hypertension (5) FTT (failure to thrive) in adult Status: Chronic - Plan is s/p placement of tunnelled HD cath, peritoneal dialysis cath and fistula in left forearm 10/03 had 1 hr HD yesterday is not eating much hold antihtn meds with sbp trending in the 90-100 range, watch for hypotension during HD continue lipitor, trileptal as before d/w father at bedside aspiration precautions, speech eval for safe consistency of food.
[2020-10-05] MEDS: Atorvastatin Calcium 10 MG TAB PO SCH (21:59)
[2020-10-05] MEDS: Acetaminophen 650 MG/20.3 ML UDCUP PO PRN (22:00)
[2020-10-06] MEDS: Albuterol Sulfate 1.25 MG/3 ML NEB NEB SCH ×3 (08:34→20:09)
[2020-10-06] MEDS: Heparin 5,000 UNITS/ML VIAL SC SCH ×3 (09:22→21:24)
[2020-10-06] MEDS: Polyethylene Glycol 3350 17 GM Packet PO SCH (09:23)
[2020-10-06] MEDS: OXcarbazepine 300 MG/5 ML UDCUP PO SCH ×4 (09:23→21:24)
[2020-10-06 13:13] LABS: Hep B Surface AG-Rflx Sendout Negative (Negative); Hepatitis B Core Total Negative (Negative); Hepatitis B Surface AB-Sendout Non Reactive (.)
--- NOTE | 2020-10-06 14:09 | PDOC.HOSPP ---
- Subjective Encounter Date: 10/06/20 Encounter Time: 09:00 Subjective: is sitting in chair, both parents at bedside has some mild oozing around tunnelled cath site in neck area is eating better per parents - Objective Vital Signs & Weight: Vital Signs (12 hours) Temp Pulse Resp BP Pulse Ox 10/06/20 11:47 97.7 F 74 16 135/84 99 10/06/20 08:34 76 18 100 10/06/20 07:29 97.6 F 74 12 117/72 99 10/06/20 04:00 98.1 F 67 18 103/66 100 Weight Weight 91 lb 12.808 oz I&O: 10/05/20 10/06/20 10/07/20 06:59 06:59 06:59 Intake Total 80 540 Balance 80 540 Result Diagrams: 10/05/20 08:30 10/05/20 08:30 Hospitalist ROS - Medication Medications: Active Medications Generic Name Dose Route Start Last Admin Trade Name Freq PRN Reason Stop Dose Admin Acetaminophen 1,000 mg 10/04/20 01:36 10/05/20 22:00 Acetaminophen 650 Mg/20.3 Ml Udcup PO 1,000 mg Q6H PRN Administration Moderate to Severe Pain (6-10) Albuterol Sulfate 1.25 mg 10/05/20 15:00 10/06/20 08:34 Albuterol Sulfate 1.25 Mg/3 Ml Neb NEB 1.25 mg [id number] ROMELIA Administration Atorvastatin Calcium 10 mg 10/02/20 21:00 10/05/20 21:59 Atorvastatin Calcium 10 Mg Tab PO 10 mg HS ROMELIA Administration Heparin Sodium (Porcine) 5,000 units 10/01/20 21:00 10/06/20 09:22 Heparin 5,000 Units/Ml Vial SC 5,000 units TID ROMELIA Administration Oxcarbazepine 360 mg 10/02/20 09:00 10/06/20 09:23 Oxcarbazepine 300 Mg/5 Ml Udcup PO 360 mg 0900 ROMELIA Administration Oxcarbazepine 180 mg 10/02/20 12:00 10/06/20 12:25 Oxcarbazepine 300 Mg/5 Ml Udcup PO 180 mg 1200 ROMELIA Administration Oxcarbazepine 120 mg 10/02/20 16:00 10/05/20 16:57 Oxcarbazepine 300 Mg/5 Ml Udcup PO 120 mg 1600 ROMELIA Administration Oxcarbazepine 390 mg 10/02/20 22:00 10/05/20 21:59 Oxcarbazepine 300 Mg/5 Ml Udcup PO 390 mg 2200 ROMELIA Administration Polyethylene Glycol 17 gm 10/02/20 09:00 10/06/20 09:23 Polyethylene Glycol 3350 17 Gm Packet PO Not Given DAILY ROMELIA Tramadol HCl 50 mg 10/03/20 19:16 10/03/20 22:46 Tramadol Hcl 50 Mg Tab PO 50 mg Q4H PRN Administration Pain 1-5 - Exam General Appearance: awake alert Eye: PERRL, anicteric sclera ENT: no oropharyngeal lesions, moist mucosa Neck: supple, no JVD Heart: RRR, no murmur Respiratory: no wheezes, no rales Gastrointestinal: soft, non-tender, non-distended, normal bowel sounds Extremities: no cyanosis, no edema Neurological: cranial nerve grossly intact, no new deficit Hosp A/P (1) Acute on chronic renal failure Code(s): N17.9 - ACUTE KIDNEY FAILURE, UNSPECIFIED; N18.9 - CHRONIC KIDNEY DISEASE, UNSPECIFIED Status: Acute (2) Chronic anemia Code(s): D64.9 - ANEMIA, UNSPECIFIED Status: Chronic (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 Is tolerating HD well so far. encourage po intake via parents help, aspiration precautions. hold anti-htn meds with sbp trending in the 90-100 range, watch for hypotension during HD continue lipitor, trileptal as before d/w parents at bedside aspiration precautions, speech eval outpt HD chair needs to be set up until parents are ready for PD.
[2020-10-06] MEDS ORDERED: Heparin 10,000 UNITS/ 10 ML VIAL ONE (15:01)
[2020-10-06] MEDS: Acetaminophen 650 MG/20.3 ML UDCUP PO PRN ×2 (15:35→21:57)
[2020-10-06] MEDS: Atorvastatin Calcium 10 MG TAB PO SCH (21:10)
[2020-10-07 01:14] LABS: #Lymphocytes 1.5 thou/uL (1.20-3.40); #Monocytes 0.7 thou/uL (0.11-0.59); #Neutrophils 5.4 thou/uL (1.40-6.50); %Basophils 0.3 % (0.0-1.0); %Eosinophils 0.6 % (0.0-10.0); %Lymphocytes 19.4 % (21.0-51.0); %Monocytes 8.9 % (0.0-10.0); %Neutrophils 70.8 % (42.0-75.0); Hemoglobin 6.4 g/dL (12.0-16.0); Mean Corpuscular HGB CONC 33.1 g/dL (32.0-36.0); Mean Corpuscular Hemoglobin 31.3 pg (27.0-31.0); Mean Corpuscular Volume 94.4 fL (78.0-98.0); Mean Platelet Volume 6.3 fL (7.4-10.4); Platelet Count 209 thou/uL (130-400); RBC Distribution Width 11.4 % (11.5-14.5); Red Blood Cell (RBC) Count 2.04 mill/uL (4.20-5.40); White Blood Cell (WBC) Count 7.7 thou/uL (4.8-10.8)
[2020-10-07 01:32] LABS: Anion Gap 15 mmol/L (10-20); BUN (Urea Nitrogen) 32 mg/dL (7.0-18.7); Calc. Creatinine Clearance 23 mL/min (70-130); Calcium 8.7 mg/dL (7.8-10.44); Carbon Dioxide 27 mmol/L (22-29); Chloride 100 mmol/L (98-107); Estimated GFR-MDRD 25; Glucose 92 mg/dL (70-105); Potassium 4.4 mmol/L (3.5-5.1); Sodium 138 mmol/L (136-145)
[2020-10-07] MEDS: traMADol HCl 50 MG TAB PO PRN (05:20)
[2020-10-07] MEDS: Albuterol Sulfate 1.25 MG/3 ML NEB NEB SCH ×3 (08:27→22:47)
[2020-10-07 09:24] LABS: Hemoglobin 6.8 g/dL (12.0-16.0)
[2020-10-07] MEDS: OXcarbazepine 300 MG/5 ML UDCUP PO SCH ×5 (09:24→20:49)
[2020-10-07] MEDS: Polyethylene Glycol 3350 17 GM Packet PO SCH (09:25)
[2020-10-07] MEDS ORDERED: Pantoprazole 40 MG VIAL IVP SCH (09:27)
[2020-10-07] MEDS ORDERED: Ondansetron PF 4 MG/2 ML Vial IVP PRN (09:51)
[2020-10-07 12:43] VITALS: BMI 22.1
--- NOTE | 2020-10-07 13:47 | PDOC.HOSPP ---
- Subjective Encounter Date: 10/07/20 Encounter Time: 10:00 Subjective: has nausea and vomiting x 3, unable to eat this morning per parents at bedside had some coffee ground vomitus, no daquan blood in vomitus, no bleeding per rectum - Objective Vital Signs & Weight: Vital Signs (12 hours) Temp Pulse Pulse Resp BP BP Pulse Ox 10/07/20 12:16 97.5 F L 90 16 107/66 10/07/20 12:00 97.9 F 90 16 107/66 97 10/07/20 07:28 97.4 F L 98 16 134/75 97 10/07/20 05:34 97.6 F 89 18 136/76 96 Weight Admit Weight 91 lb 12.8 oz Weight 91 lb 12.808 oz I&O: 10/06/20 10/07/20 10/08/20 06:59 06:59 06:59 Intake Total 540 210 0 Balance 540 210 0 Result Diagrams: 10/07/20 05:40 10/07/20 00:58 Hospitalist ROS - Medication Medications: Active Medications Generic Name Dose Route Start Last Admin Trade Name Freq PRN Reason Stop Dose Admin Acetaminophen 1,000 mg 10/04/20 01:36 10/06/20 21:57 Acetaminophen 650 Mg/20.3 Ml Udcup PO 1,000 mg Q6H PRN Administration Moderate to Severe Pain (6-10) Albuterol Sulfate 1.25 mg 10/05/20 15:00 10/07/20 08:27 Albuterol Sulfate 1.25 Mg/3 Ml Neb NEB Not Given [id number] ROMELIA Atorvastatin Calcium 10 mg 10/02/20 21:00 10/06/20 21:10 Atorvastatin Calcium 10 Mg Tab PO 10 mg HS ROMELIA Administration Ondansetron HCl 4 mg 10/07/20 09:51 10/07/20 10:00 Ondansetron Pf 4 Mg/2 Ml Vial IVP 4 mg Q6H PRN Administration Nausea/Vomiting Oxcarbazepine 360 mg 10/02/20 09:00 10/07/20 11:37 Oxcarbazepine 300 Mg/5 Ml Udcup PO 360 mg 0900 ROMELIA Administration Oxcarbazepine 180 mg 10/02/20 12:00 10/06/20 12:25 Oxcarbazepine 300 Mg/5 Ml Udcup PO 180 mg 1200 ROMELIA Administration Oxcarbazepine 120 mg 10/02/20 16:00 10/06/20 17:08 Oxcarbazepine 300 Mg/5 Ml Udcup PO 120 mg 1600 ROMELIA Administration Oxcarbazepine 390 mg 10/02/20 22:00 10/06/20 21:24 Oxcarbazepine 300 Mg/5 Ml Udcup PO 390 mg 2200 ROMELIA Administration Polyethylene Glycol 17 gm 10/02/20 09:00 10/07/20 09:25 Polyethylene Glycol 3350 17 Gm Packet PO Not Given DAILY ROMELIA Tramadol HCl 50 mg 10/03/20 19:16 10/07/20 05:20 Tramadol Hcl 50 Mg Tab PO 50 mg Q4H PRN Administration Pain 1-5 - Exam General Appearance: awake alert Eye: PERRL, anicteric sclera ENT: no oropharyngeal lesions, dry oral mucosa Neck: supple, no JVD Heart: RRR, no murmur Respiratory: no wheezes, no rales Gastrointestinal: soft, non-tender, non-distended, normal bowel sounds Gastrointestinal - other findings: some bleeding around PD cath site Extremities: no cyanosis, no edema Neurological: cranial nerve grossly intact, no new deficit Hosp A/P (1) Acute on chronic renal failure Code(s): N17.9 - ACUTE KIDNEY FAILURE, UNSPECIFIED; N18.9 - CHRONIC KIDNEY DISEASE, UNSPECIFIED Status: Acute (2) Chronic anemia Code(s): D64.9 - ANEMIA, UNSPECIFIED Status: Chronic (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 Is tolerating HD well so far. hold anti-htn meds with sbp trending in the 90-100 range, watch for hypotension during HD continue lipitor, trileptal as before d/w parents at bedside aspiration precautions, speech eval outpt HD chair is ready on discharge. h/h q8h d/w reg mild bleeding around PD cath
[2020-10-07] MEDS: Acetaminophen 650 MG/20.3 ML UDCUP PO PRN (14:17)
[2020-10-07 18:20] LABS: Hemoglobin 7.9 g/dL (12.0-16.0); Platelet Count 193 thou/uL (130-400)
[2020-10-07 18:27] LABS: PTT 29.7 sec (22.9-36.1); Prothrombin Time 12.9 sec (12.0-14.7)
[2020-10-07] MEDS: Atorvastatin Calcium 10 MG TAB PO SCH (20:49)
[2020-10-07] MEDS: Pantoprazole 40 MG VIAL IVP SCH (20:53)
[2020-10-08 01:22] LABS: Hemoglobin 8.1 g/dL (12.0-16.0); Platelet Count 216 thou/uL (130-400)
--- NOTE | 2020-10-08 04:36 | CON ---
DATE OF CONSULTATION: 10/07/2020 REASON FOR CONSULT: Coffee-ground emesis. HISTORY OF PRESENT ILLNESS: Comes from review of the chart and talking with Ms. Yarbrough's mother, who is at the bedside. Ms. Yarbrough is a 39-year-old female, who was admitted to the hospital on 10/01/2020 for emergency dialysis, where she was referred by her cut lace machine operator. She has a history of Rett syndrome and has had chronic kidney disease for some time, but has acute decompensation more recently. She has also had some issues of hypertension. She does not communicate verbally at baseline, but does by her eyes and actions. Her mother is actually pretty good in judging her. She states she has been doing pretty good, but it seems like a day or two ago . While she is here, she has had a peritoneal dialysis catheter placed and also hemodialysis due to a Angelo catheter in her neck and then has had a hemodialysis shunt put in her arm, which is not yet mature. Apparently, this morning, she has been having normal bowel movements, which were brown, and she was having more bowel movements at home, and was eating well at home, but here in the past several days, has not been eating well, and this morning, began to throw coffee-ground like material. The nurses had given her some antinausea medicines that resolved. She was also started on some Protonix today. Here, 1st dose at 10 this morning. There has been no history of in the past or ulcers in the past. She does take aspirin occasionally, but not regularly. The mother notes that BUN really started going up and recently on 10/01, it was 85 with a creatinine of 2.95 up from 24 and 1.25 back on 04/02. On 10/04, her BUN and creatinine were 92 and 3.75, today 32 and 2.17. She started dialysis a couple of days ago. Also, the patient's hemoglobin today was 6.8 at 5 this morning, 6.4 at midnight last night. It was 7.6 on the 15th and 7.7 on . On , it was 9.7. PAST MEDICAL HISTORY: 1. Rett syndrome. 2. Chronic renal disease, now on dialysis. 3. Seizure disorder. 4. Hypertension. PAST SURGICAL HISTORY: 1. Laparoscopic cholecystectomy. 2. surgery. 3. Vascular access graft. 4. Dialysis catheter placement. 5. PD catheter placement. REVIEW OF SYSTEMS: Cannot be obtained. MEDICATIONS: At home; 1. Trileptal. 2. MiraLAX. 3. Atorvastatin. 4. Apresoline. 5. Captopril. Medications here; 1. Protonix. 2. Oxcarbazepine. 3. Atorvastatin. 4. . 5. Acetaminophen. 6. Tramadol. 7. Protonix started today. ALLERGIES: NONE KNOWN. SOCIAL HISTORY: The patient lives with her parents, who take care of her. FAMILY HISTORY: Noncontributory. PHYSICAL EXAMINATION: VITAL SIGNS: Temperature is 97.5, pulse 98, blood pressure LUNGS: Clear. HEART: Regular without clicks or murmurs. ABDOMEN: Soft, nonprotuberant, . There is a dialysis catheter in place. SKIN: Appears normal with no evidence of hematoma. EXTREMITIES: No clubbing, cyanosis, or edema. Talking with the nurse, there has been no melena. She had 2 brown stools today. She is also going to get transfused now. ASSESSMENT: 1. Coffee-ground emesis. She has had a drop in hemoglobin from baseline around 9 on the 11th and 12th of this month down to about 6.8. She has had some coffee-ground emesis this morning. Does not appear to have any overt hemorrhage. She has had no melena. Although with the elevated BUN recently much higher than the creatinine, it is unclear if that was just uremia or if that could be related to reabsorption of blood in the GI tract. It does not seem that she was on any PPI prophylaxis, maybe an H2 swapna at the early part of this hospitalization. There has been no history of retching to indicate Jessica-Berger tear. Presently, she is hemodynamically stable and is going to get blood. 2. End-stage renal disease, now starting dialysis. 3. History of seizure disorder. 4. Status post recent PD catheter placement. RECOMMENDATIONS: 1. IV Protonix q.12 hours. Agree with transfusion. 2. Clear liquids. N.p.o. after midnight. Plan for upper endoscopy tomorrow. Risks, benefits, and possible complications were discussed with the patient's mother at the bedside and indications for procedure were discussed with her as well. She had a COVID test negative on the of this month. We will check with the OR and make sure that is okay. Job ID: [id number]
[2020-10-08] MEDS: Albuterol Sulfate 1.25 MG/3 ML NEB NEB SCH ×2 (07:16→17:12)
[2020-10-08 08:07] LABS: Hemoglobin 8.3 g/dL (12.0-16.0); Platelet Count 240 thou/uL (130-400)
[2020-10-08] MEDS: OXcarbazepine 300 MG/5 ML UDCUP PO SCH ×5 (09:01→17:56)
[2020-10-08] MEDS ORDERED: PROPOFOL 200 MG/20 ML VIAL ONE (10:38)
[2020-10-08] MEDS ORDERED: Lidocaine 1% PF 5 ML VIAL ONE (10:38)
--- NOTE | 2020-10-08 11:34 | OP ---
DATE OF PROCEDURE: 10/08/2020 SHOES SALESPERSON SURGEON: None. PROCEDURE PERFORMED: Esophagogastroduodenoscopy with biopsies. INDICATIONS: 1. Hematemesis. 2. Anemia. MEDICATIONS: See Anesthesia record. FINDINGS: After discussion of the risks, benefits, and alternatives of the procedure, informed consent was obtained and witnessed. Pre-endoscopic cardiopulmonary examination was satisfactory. Time-out was performed before sedation was achieved. Sedation was achieved with Anesthesia assistance in the endoscopy unit. The patient was placed in the left lateral decubitus position. A Pentax adult upper endoscope was placed into the oropharynx and passed through the cricopharyngeus under direct visualization. The esophageal mucosa appeared normal throughout with a normal-appearing Z-line at 32 cm from the incisors. The endoscope was advanced into the stomach. Forward and retroflexed views of the entire gastric mucosa were obtained. There was no evidence of any old blood or active bleeding in the stomach. There is some heme staining within the gastric body. This appears to be related to patchy gastritis throughout the gastric antrum and body characterized by erythema and friability, but there were no erosions or ulcerations noted. No other bleeding lesions noted. There is a small hiatal hernia. Biopsies were obtained from the gastric antrum and body to rule out H pylori infection. The endoscope was passed through the pylorus and into the first and second portions of the duodenum, which appeared normal. The upper endoscope was then completely withdrawn and the patient allowed to recover. The patient tolerated the procedure well. There were no immediate postprocedure complications. IMPRESSION: 1. Mild patchy gastritis with erythema and friability, but no erosions or ulcerations noted. 2. Small hiatal hernia. 3. Otherwise, normal esophagogastroduodenoscopy. SPECIMENS REMOVED: Gastric biopsies, rule out H pylori. RECOMMENDATIONS: 1. Advance diet. 2. We would continue on the IV Protonix while hospitalized, it could be reduced to once daily dosing. Continue with pantoprazole 40 mg once daily oral dosing upon hospital discharge. 3. Follow up results of gastric biopsies. If H pylori is present, treat with triple therapy and confirm eradication. GI will sign off. Please call back anytime with questions or concerns. Job ID: [id number]
[2020-10-08] MEDS: Pantoprazole 40 MG VIAL IVP SCH (12:05)
[2020-10-08] MEDS: Polyethylene Glycol 3350 17 GM Packet PO SCH (12:15)
[2020-10-08] MEDS ORDERED: Heparin 10,000 UNITS/ 10 ML VIAL ONE (12:26)
--- NOTE | 2020-10-08 13:10 | PDOC.HOSPP ---
- Subjective Encounter Date: 10/08/20 Encounter Time: 09:30 Subjective: is in day stay along with her parents not in distress - Objective Vital Signs & Weight: Vital Signs (12 hours) Temp Pulse Resp BP BP Pulse Ox 10/08/20 07:46 100 10/08/20 07:34 98.2 F 70 16 123/85 100 10/08/20 07:16 75 16 97 10/08/20 06:05 98.4 F 75 18 111/69 97 Weight Admit Weight 91 lb 12.8 oz Weight 91 lb 12.808 oz I&O: 10/07/20 10/08/20 10/09/20 06:59 06:59 06:59 Intake Total 210 465 Balance 210 465 Result Diagrams: 10/08/20 07:59 10/07/20 00:58 Hospitalist ROS - Medication Medications: Active Medications Generic Name Dose Route Start Last Admin Trade Name Freq PRN Reason Stop Dose Admin Acetaminophen 1,000 mg 10/04/20 01:36 10/07/20 14:17 Acetaminophen 650 Mg/20.3 Ml Udcup PO 1,000 mg Q6H PRN Administration Moderate to Severe Pain (6-10) Albuterol Sulfate 1.25 mg 10/05/20 15:00 10/08/20 07:16 Albuterol Sulfate 1.25 Mg/3 Ml Neb NEB 1.25 mg [id number] ROMELIA Administration Atorvastatin Calcium 10 mg 10/02/20 21:00 10/07/20 20:49 Atorvastatin Calcium 10 Mg Tab PO 10 mg HS ROMELIA Administration Ondansetron HCl 4 mg 10/07/20 09:51 10/07/20 10:00 Ondansetron Pf 4 Mg/2 Ml Vial IVP 4 mg Q6H PRN Administration Nausea/Vomiting Oxcarbazepine 360 mg 10/02/20 09:00 10/08/20 12:04 Oxcarbazepine 300 Mg/5 Ml Udcup PO 360 mg 0900 ROMELIA Administration Oxcarbazepine 180 mg 10/02/20 12:00 10/08/20 12:15 Oxcarbazepine 300 Mg/5 Ml Udcup PO Not Given 1200 ROMELIA Oxcarbazepine 120 mg 10/02/20 16:00 10/07/20 17:56 Oxcarbazepine 300 Mg/5 Ml Udcup PO 120 mg 1600 ROMELIA Administration Oxcarbazepine 390 mg 10/02/20 22:00 10/07/20 20:49 Oxcarbazepine 300 Mg/5 Ml Udcup PO 390 mg 2200 ROMELIA Administration Pantoprazole Sodium 40 mg 10/07/20 21:00 10/08/20 12:05 Pantoprazole 40 Mg Vial IVP 40 mg Q12HR ROMELIA Administration Polyethylene Glycol 17 gm 10/02/20 09:00 10/08/20 12:15 Polyethylene Glycol 3350 17 Gm Packet PO Not Given DAILY ROMELIA Tramadol HCl 50 mg 10/03/20 19:16 10/07/20 05:20 Tramadol Hcl 50 Mg Tab PO 50 mg Q4H PRN Administration Pain 1-5 - Exam General Appearance: awake alert Eye: PERRL, anicteric sclera ENT: no oropharyngeal lesions, dry oral mucosa Neck: supple, no JVD Heart: RRR, no murmur Respiratory: no wheezes, no rales Gastrointestinal: soft, non-tender, non-distended, normal bowel sounds Gastrointestinal - other findings: PD cath site is clean Extremities: no cyanosis, 1+ LE edema Neurological: cranial nerve grossly intact, no new deficit Hosp A/P (1) Acute on chronic renal failure Code(s): N17.9 - ACUTE KIDNEY FAILURE, UNSPECIFIED; N18.9 - CHRONIC KIDNEY DISEASE, UNSPECIFIED Status: Acute (2) Chronic anemia Code(s): D64.9 - ANEMIA, UNSPECIFIED Status: Chronic (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 is s/p placement of tunnelled HD cath, peritoneal dialysis cath and fistula in left forearm 10/03 Is tolerating HD well so far. hold anti-htn meds with sbp trending in the 90-100 range, watch for hypotension during HD continue lipitor, trileptal as before d/w parents at bedside aspiration precautions, speech eval outpt HD chair is ready on discharge. DC plan per Dr.Richard Ramirez's advice, family is eager to take her home as well.
[2020-10-08 15:28] VITALS: BP 99/63; TEMP 98
--- NOTE | 2020-10-09 12:33 | DIS ---
DATE OF ADMISSION: 10/01/2020 DATE OF DISCHARGE: 10/08/2020 DISCHARGE DISPOSITION: Is to home. PRIMARY DISCHARGE DIAGNOSES: Acute kidney injury on top of chronic kidney disease resulting in end-stage renal disease and initiated on hemodialysis this admission, acute blood loss anemia, Rett syndrome, hypertension, failure to thrive. PROCEDURES DONE DURING HOSPITALIZATION: Chest x-ray done showed no acute cardiopulmonary process. The patient has had placement of right IJ cuffed tunneled hemodialysis catheter, laparoscopic peritoneal dialysis catheter, and left arm primary fistula all placed by Dr. Carter on 10/03/2020. Upper endoscopy done on 10/08/2020 showed findings of mild patchy gastritis with erythema and friability, but no erosions or ulcerations seen. Small hiatal hernia. Gastric biopsies were obtained to rule out H pylori. H and H of 8.3 and 24 with platelet count of 240 on the day of discharge. Her H and H had dropped down to 6.4 and 19 on the and has received a unit of transfusion. PT/INR, PTT within normal limits. BUN 32, creatinine 2.1 on the day of discharge. Admitting BUN and creatinine were 85 and 2.9, albumin 4.4 on the day of admission. COVID-19 PCR was not detected on 10/01/2020. HBS antigen nonreactive. Hep C antibody nonreactive. DISCHARGE MEDICATIONS: 1. Atorvastatin 10 mg p.o. at bedtime. 2. MiraLAX 17 g daily. 3. Trileptal 6 mL in morning, 3 mL at 12 noon, 2 mL at 4:00 p.m. 4. Ferrous sulfate 300 mg p.o. daily. 5. Protonix 40 mg daily. ALLERGIES: NO KNOWN DRUG ALLERGIES. DISCHARGE PLAN: The patient to follow up with Dr. Aren Ramirez, her incising machine operator in 1 week. She needs to follow up with Dr. Carolee Rodriguez, her primary care physician in [address] Aren Carter in 3 to 4 weeks. The patient has outpatient hemodialysis scheduled on the at 3:00 p.m. this month. BRIEF COURSE DURING HOSPITALIZATION: The patient initially got admitted on the where she was electively admitted from Dr. Aren Ramirez's office for emergency dialysis. The patient has had acute kidney injury on top of her chronic kidney disease with progression to end-stage renal disease. She was initiated on hemodialysis after placement of tunneled catheter. She has also had placement of peritoneal dialysis catheter and left upper extremity fistula as well. She has tolerated hemodialysis sessions during her stay here. The patient had a drop in H and H with coffee-ground emesis and has had upper endoscopy done, which showed patchy gastritis. She needs to continue Protonix and ferrous sulfate along with Trileptal, her seizure medication. She is hemodynamically stable and will be shortly discharged home. All through her stay, her parents were at the bedside and were given complete updates. Please see a [id number] documentation for the day of discharge on [employer]. She has been cleared for discharge by Dr. Aren Ramirez. Job ID: [id number]
--- NOTE | 2020-10-11 15:25 | PQF ---
CLINICAL DOCUMENTATION CLARIFICATION FORM: Dear : HENRI JOHNSON MD Date / Time: 10/11/2020 Please exercise your independent, professional judgment in responding to the clarification form. Clinical indicators are provided on the bottom of this form for your review Please check appropriate box(es): [ ] Hematemesis due to hiatal hernia [ x ] Hematemesis due to gastritis [ ] Other diagnosis (Please specify if any) [ ] Unable to determine Physician Signature: Date/Time: For continuity of documentation, please document condition throughout progress notes and discharge summary. Thank You. To be completed by CDI/Coding staff for physician review: Present Clinical Indicators - Signs / Symptoms / Labs Results and Location in Medical Record [x] Hematemesis EGD on 10/08 [x] Acute blood loss anemia Hospitalist PN on 10/07 [x] There is some heme staining within the gastric body EGD on 10/08 [x] This appears to be related to patchy gastritis throughout the gastric antrum and body characterized by erythema and friability EGD on 10/08 [x] There is small hiatal hernia EGD on 10/08 Present Risk Factors Results and Location in Medical Record [x] Coffe-ground emesis Consult on 10/07 [ ] Present Treatments Results and Location in Medical Record [x] Esophagogastroduodenoscopy with biopsies OP note on 10/08 [x] Protonix 40mg IV Medication on 10/07, 10/08 [ ] [ ] CDS/Video Production Coordinator Signature: AAS Phone #: Date/Time: 10/11/2020 This is a permanent part of the Medical Record MTDD
== END 2020-10-08 18:07 | disposition home or self-care (01) | DRG 673 ==
LOC: ERS 10:25 → T4-B 13:35
PROVIDERS: ADMIT Student in an Organized Health Care Education/Training Program; ATTEND Internal Medicine
PROC: 0WHG43Z Insertion of Infusion Device into Peritoneal Cavity, Percutaneous Endoscopic Approach (ICD-10-PCS; principal; 2020-10-03)
PROC: 0JH63XZ Insertion of Tunneled Vascular Access Device into Chest Subcutaneous Tissue and Fascia, Percutaneous Approach (ICD-10-PCS; 2020-10-03)
PROC: 02HV33Z Insertion of Infusion Device into Superior Vena Cava, Percutaneous Approach (ICD-10-PCS; 2020-10-03)
PROC: B548ZZA Ultrasonography of Superior Vena Cava, Guidance (ICD-10-PCS; 2020-10-03)
PROC: 5A1D70Z Performance of Urinary Filtration, Intermittent, Less than 6 Hours Per Day (ICD-10-PCS; 2020-10-04)
PROC: 5A1D70Z Performance of Urinary Filtration, Intermittent, Less than 6 Hours Per Day (ICD-10-PCS; 2020-10-06)
PROC: 0DB68ZX Excision of Stomach, Via Natural or Artificial Opening Endoscopic, Diagnostic (ICD-10-PCS; 2020-10-08)
DX: I12.0 Hypertensive chronic kidney disease with stage 5 chronic kidney disease or end stage renal disease (principal); N18.6 End stage renal disease; K29.71 Gastritis, unspecified, with bleeding; N17.9 Acute kidney failure, unspecified; F84.2 Rett's syndrome; D62 Acute posthemorrhagic anemia; G40.909 Epilepsy, unspecified, not intractable, without status epilepticus; G62.9 Polyneuropathy, unspecified; E87.5 Hyperkalemia; D63.1 Anemia in chronic kidney disease; R62.7 Adult failure to thrive; K29.70 Gastritis, unspecified, without bleeding; E78.5 Hyperlipidemia, unspecified; N95.2 Postmenopausal atrophic vaginitis; N83.209 Unspecified ovarian cyst, unspecified side; Z20.828 Contact with and (suspected) exposure to other viral communicable diseases; Z98.890 Other specified postprocedural states; Z68.22 Body mass index [BMI] 22.0-22.9, adult; Z79.899 Other long term (current) drug therapy; Z90.49 Acquired absence of other specified parts of digestive tract
CPT/HCPCS: 36415; 36430; 51701; 71045; 76000; 80048; 80053; 80183; 81003; 81015; 83735; 83880; 84100; 84484; 85014; 85018; 85025; 85049; 85610; 85730; 86580; 86704; 86705; 86706; 86707; 86803; 86850; 86900; 86901; 87077; 87086; 87340; 87350; 87635; 88305; 88312; 90935; 93005; 93306; 93970; 93975; 94640; C1752; C9113; G0257; J1100; J1644; J2250; J2405; J2704; J2720; J3010; J3490; P9016; S0020; U0003

== ENCOUNTER 2021-10-06 12:33 | Inpatient (IN) | payer BC, MEDICARE, MEDICAID ==
[~2021-10-06 12:33] MED LIST: Iopamidol-370 76% 500 ML 1 ML ONE
[2021-10-06 13:49] LABS: #Eosinphils 0.1 thou/uL (0.0-0.7); #Lymphocytes 0.9 thou/uL (1.20-3.40); #Monocytes 1.3 thou/uL (0.11-0.59); #Neutrophils 11.7 thou/uL (1.40-6.50); %Eosinophils 0.4 % (0.0-10.0); %Lymphocytes 6.5 % (21.0-51.0); %Monocytes 9.6 % (0.0-10.0); %Neutrophils 83.5 % (42.0-75.0); Hemoglobin 11.4 g/dL (12.0-16.0); Mean Corpuscular HGB CONC 34.3 g/dL (32.0-36.0); Mean Corpuscular Hemoglobin 32.7 pg (27.0-31.0); Mean Corpuscular Volume 95.5 fL (78.0-98.0); Mean Platelet Volume 5.9 fL (7.4-10.4); Platelet Count 363 thou/uL (130-400); RBC Distribution Width 13.2 % (11.5-14.5); Red Blood Cell (RBC) Count 3.49 mill/uL (4.20-5.40)
[2021-10-06 14:11] LABS: ALT (SGPT) 32 U/L (8-55); AST (SGOT) 30 U/L (5-34); Albumin 3.8 g/dL (3.5-5.0); Alkaline Phosphatase 68 U/L (40-110); Anion Gap 20 mmol/L (10-20); BUN (Urea Nitrogen) 105 mg/dL (7.0-18.7); Bilirubin, Total 0.3 mg/dL (0.2-1.2); Calc. Creatinine Clearance 0 mL/min (70-130); Calcium 8.9 mg/dL (7.8-10.44); Carbon Dioxide 28 mmol/L (22-29); Chloride 87 mmol/L (98-107); Globulin 3.7 g/dL (2.4-3.5); Glucose 122 mg/dL (70-105); Lipase 153 U/L (8-78); Potassium 3.9 mmol/L (3.5-5.1); Protein, Total 7.5 g/dL (6.0-8.3); Sodium 131 mmol/L (136-145)
[2021-10-06] MEDS ORDERED: Famotidine/PF 20 mg/2ml Vial ONE (14:41)
[2021-10-06] MEDS ORDERED: Guaifenesin DM 100-10/5 ML UDCUP PO PRN (16:13)
[2021-10-06] MEDS ORDERED: Ondansetron ODT 4 MG TAB PO PRN (16:13)
[2021-10-06] MEDS ORDERED: Ondansetron PF 4 MG/2 ML Vial IVP PRN (16:13)
[2021-10-06] MEDS ORDERED: Bisacodyl 5 MG TAB PO PRN (16:13)
[2021-10-06] MEDS ORDERED: HYDROcodone/Acetaminophen 5/325 mg Tablet PO PRN (16:13)
[2021-10-06] MEDS ORDERED: Piperacillin/Tazobactam 3.375 GM in Sodium Chloride 0.9% 100 ML IVPB SCH (20:00)
[2021-10-06] MEDS ORDERED: Famotidine 20 MG TAB PO SCH (21:00)
[2021-10-06 21:55] VITALS: BMI 19.2
[2021-10-06] MEDS ORDERED: Piperacillin/Tazobactam 2.25 GM in Sodium Chloride 0.9% 100 ML IVPB SCH (22:00)
[2021-10-06] MEDS ORDERED: Lorazepam 2 MG/ML VIAL SLOW IVP PRN (23:18)
[2021-10-06] MEDS: Piperacillin/Tazobactam 3.375 GM in Sodium Chloride 0.9% 100 ML IVPB SCH (23:50)
[2021-10-07 00:29] LABS: HBSAg Index 0.22 S/CO (0-0.99); Hep B Surf Ag Non-Reactive S/CO (NonReactive)
[2021-10-07 01:07] LABS: Bacteria/HPF 4+ HPF (None Seen); Bilirubin Negative (Negative); Blood, Urine Negative (Negative); Clarity Turbid (Clear); Glucose, Urine (Dipstick) Normal (Negative); Ketone, Urine Negative (Negative); Leukocyte 500 Leu/uL (Negative); Nitrite Negative (Negative); Protein, Urine (Dipstick) 30 mg/dL (Neg-Trace); RBC/HPF 0-3 HPF (0-3); Specific Gravity, Urine 1.021 (1.002-1.036); Squamous Epithelial 0-3 HPF (0-3); Urobilinogen Normal mg/dL (Less than 2); WBC/HPF 21-50 HPF (0-3); pH, Urine 5.5 (5.0-9.0)
[2021-10-07 01:08] LABS: Urine Culture Reflex Yes Yes
[2021-10-07 01:21] LABS: Legionella Urinary Ag Negative (Negative); Strep pneumo Urine Ag NEGATIVE (NEGATIVE)
[2021-10-07 02:17] LABS: Hep B Surf AB Reactive (NonReactive)
[2021-10-07 02:19] LABS: HBSAB Concentration 2299.73 mIU/mL
[2021-10-07 04:23] LABS: #Eosinphils 0.1 thou/uL (0.0-0.7); #Lymphocytes 0.9 thou/uL (1.20-3.40); #Monocytes 1.1 thou/uL (0.11-0.59); #Neutrophils 6.3 thou/uL (1.40-6.50); %Basophils 0.4 % (0.0-1.0); %Lymphocytes 10.6 % (21.0-51.0); %Monocytes 12.5 % (0.0-10.0); %Neutrophils 75.5 % (42.0-75.0); Mean Corpuscular HGB CONC 32.5 g/dL (32.0-36.0); Mean Corpuscular Volume 95.6 fL (78.0-98.0); Mean Platelet Volume 5.9 fL (7.4-10.4); Platelet Count 265 thou/uL (130-400); RBC Distribution Width 12.9 % (11.5-14.5); Red Blood Cell (RBC) Count 3.22 mill/uL (4.20-5.40); White Blood Cell (WBC) Count 8.3 thou/uL (4.8-10.8)
[2021-10-07 04:46] LABS: Anion Gap 20 mmol/L (10-20); BUN (Urea Nitrogen) 87 mg/dL (7.0-18.7); Calc. Creatinine Clearance 10 mL/min (70-130); Calcium 7.6 mg/dL (7.8-10.44); Carbon Dioxide 19 mmol/L (22-29); Chloride 97 mmol/L (98-107); Glucose 107 mg/dL (70-105); Potassium 3.5 mmol/L (3.5-5.1); Sodium 132 mmol/L (136-145)
[2021-10-07] MEDS: Calcium Acetate 667 MG CAP PO SCH ×3 (08:38→15:05)
[2021-10-07] MEDS: Atorvastatin Calcium 10 MG TAB PO SCH (08:39)
[2021-10-07] MEDS: hydrALAZINE 10 MG TAB PO SCH ×2 (08:39→20:11)
[2021-10-07] MEDS: Polyethylene Glycol 3350 17 GM Packet PO SCH (08:40)
[2021-10-07] MEDS: Fish Oil 1,000 MG CAP PO SCH (08:40)
[2021-10-07] MEDS: Cholecalciferol 1,000 UNITS (25 MCG) TAB PO SCH (08:41)
[2021-10-07] MEDS ORDERED: Famotidine 20 MG TAB PO SCH (09:00)
[2021-10-07] MEDS ORDERED: OXcarbazepine 300 MG/5 ML UDCUP PO SCH (09:00)
[2021-10-07] MEDS ORDERED: Non-Formulary Item 1 EACH (Cholecalciferol (Vitamin D3) [Vitamin D3] 25 MCG Capsule) PO SCH (09:00)
[2021-10-07] MEDS ORDERED: Non-Formulary Item 1 EACH (Polyethylene Glycol 3350 [Miralax] 119 GM Bottle) PO SCH (09:00)
[2021-10-07 11:12] LABS: SARS-CoV-2 PCR by NAA Not Detected (NotDetected)
[2021-10-07] MEDS: Piperacillin/Tazobactam 3.375 GM in Sodium Chloride 0.9% 100 ML IVPB SCH ×2 (12:12→23:54)
[2021-10-07] MEDS: Pantoprazole 40 MG VIAL IVP SCH ×2 (16:12→23:55)
[2021-10-07] MEDS: OXcarbazepine 300 MG/5 ML UDCUP PO SCH ×2 (16:13→20:12)
[2021-10-08] MEDS: OXcarbazepine 300 MG/5 ML UDCUP PO SCH ×4 (08:42→20:09)
[2021-10-08] MEDS: Atorvastatin Calcium 10 MG TAB PO SCH (08:44)
[2021-10-08] MEDS: Cholecalciferol 1,000 UNITS (25 MCG) TAB PO SCH (08:45)
[2021-10-08] MEDS: Polyethylene Glycol 3350 17 GM Packet PO SCH (08:46)
[2021-10-08] MEDS: Fish Oil 1,000 MG CAP PO SCH (08:46)
[2021-10-08 10:03] LABS: #Eosinphils 0.2 thou/uL (0.0-0.7); #Lymphocytes 1.1 thou/uL (1.20-3.40); #Monocytes 0.9 thou/uL (0.11-0.59); #Neutrophils 4.6 thou/uL (1.40-6.50); %Basophils 0.6 % (0.0-1.0); %Eosinophils 2.7 % (0.0-10.0); %Lymphocytes 15.8 % (21.0-51.0); %Monocytes 12.9 % (0.0-10.0); Hemoglobin 9.5 g/dL (12.0-16.0); Mean Corpuscular Hemoglobin 32.6 pg (27.0-31.0); Mean Corpuscular Volume 95.6 fL (78.0-98.0); Mean Platelet Volume 5.5 fL (7.4-10.4); Platelet Count 272 thou/uL (130-400); RBC Distribution Width 13.4 % (11.5-14.5); Red Blood Cell (RBC) Count 2.91 mill/uL (4.20-5.40); White Blood Cell (WBC) Count 6.8 thou/uL (4.8-10.8)
[2021-10-08] MEDS: Calcium Acetate 667 MG CAP PO SCH ×3 (10:48→17:19)
[2021-10-08] MEDS: hydrALAZINE 10 MG TAB PO SCH ×2 (10:49→20:30)
[2021-10-08] MEDS: Piperacillin/Tazobactam 3.375 GM in Sodium Chloride 0.9% 100 ML IVPB SCH ×2 (12:02→23:59)
[2021-10-08] MEDS: Pantoprazole 40 MG VIAL IVP SCH ×2 (13:02→23:59)
[2021-10-09] MEDS: OXcarbazepine 300 MG/5 ML UDCUP PO SCH ×2 (09:00→13:23)
[2021-10-09] MEDS: Calcium Acetate 667 MG CAP PO SCH ×2 (11:16→12:44)
[2021-10-09] MEDS: Atorvastatin Calcium 10 MG TAB PO SCH (11:16)
[2021-10-09] MEDS: Cholecalciferol 1,000 UNITS (25 MCG) TAB PO SCH (11:17)
[2021-10-09] MEDS: Fish Oil 1,000 MG CAP PO SCH (11:17)
[2021-10-09] MEDS: hydrALAZINE 10 MG TAB PO SCH (11:18)
[2021-10-09] MEDS: hydrALAZINE 25 MG TAB PO SCH ×2 (11:19→13:22)
[2021-10-09] MEDS: Polyethylene Glycol 3350 17 GM Packet PO SCH (11:20)
[2021-10-09 11:38] VITALS: BP 112/74; TEMP 97.7
[2021-10-09] MEDS: Piperacillin/Tazobactam 3.375 GM in Sodium Chloride 0.9% 100 ML IVPB SCH (12:44)
[2021-10-09] MEDS: Pantoprazole 40 MG VIAL IVP SCH (12:45)
== END 2021-10-09 13:24 | disposition home or self-care (01) | DRG 377 ==
LOC: ERS 12:33 → ERHOLD 14:59 → IMCU/EMU 20:27 → T4-B 10-07 15:01
PROVIDERS: ADMIT Hospitalist; ATTEND Internal Medicine
DX: K92.0 Hematemesis (principal); K65.2 Spontaneous bacterial peritonitis; N18.6 End stage renal disease; F84.2 Rett's syndrome; I12.0 Hypertensive chronic kidney disease with stage 5 chronic kidney disease or end stage renal disease; N39.0 Urinary tract infection, site not specified; Z20.822 Contact with and (suspected) exposure to COVID-19; G62.9 Polyneuropathy, unspecified; E86.0 Dehydration; G40.909 Epilepsy, unspecified, not intractable, without status epilepticus; K29.70 Gastritis, unspecified, without bleeding; Z90.49 Acquired absence of other specified parts of digestive tract; Z99.2 Dependence on renal dialysis; Z79.899 Other long term (current) drug therapy
CPT/HCPCS: 36415; 71045; 74177; 80048; 80053; 81001; 83690; 85025; 85652; 86140; 86706; 86850; 86900; 86901; 87040; 87086; 87340; 87449; 87899; C9113; J2543; J3490; Q9967; S0028; U0003; U0005

== ENCOUNTER 2021-11-04 16:01 | Outpatient (CLI) | payer BC, MEDICARE, MEDICAID | END 2021-11-04 16:02 | disposition home or self-care (01) | LOC: BICRAD 16:01 | PROVIDERS: ATTEND Physician Assistant Medical | DX: N18.6 End stage renal disease (principal); K59.00 Constipation, unspecified; R63.0 Anorexia; R74.8 Abnormal levels of other serum enzymes; F84.2 Rett's syndrome; R19.5 Other fecal abnormalities | CPT/HCPCS: 74018 ==

== ENCOUNTER 2022-04-06 12:40 | Outpatient (CLI) | payer BC, MEDICARE, MEDICAID | END 2022-04-06 12:41 | disposition home or self-care (01) | LOC: BICRAD 12:40 | PROVIDERS: ATTEND Internal Medicine | DX: R05.9 Cough, unspecified (principal); M41.9 Scoliosis, unspecified | CPT/HCPCS: 71046 ==

== ENCOUNTER 2022-11-01 10:47 | Outpatient (CLI) | payer BC, MEDICAID | END 2022-11-01 10:48 | disposition home or self-care (01) | LOC: BICRAD 10:47 | PROVIDERS: ATTEND Internal Medicine | DX: U07.1 COVID-19 (principal) | CPT/HCPCS: 71046 ==

== ENCOUNTER 2024-03-29 11:45 | Outpatient (CLI) | payer MEDICARE, BC | END 2024-03-29 11:46 | disposition home or self-care (01) | LOC: BICRAD 11:45 | PROVIDERS: ATTEND Internal Medicine | DX: R05.9 Cough, unspecified (principal) | CPT/HCPCS: 71046 ==

== ENCOUNTER 2024-08-09 09:14 | Outpatient (CLI) | payer MEDICARE, BC | END 2024-08-09 09:15 | disposition home or self-care (01) | LOC: ULT 09:14 | PROVIDERS: ATTEND Internal Medicine | DX: R74.8 Abnormal levels of other serum enzymes (principal) | CPT/HCPCS: 76705 ==

== ENCOUNTER 2024-11-06 10:10 | Inpatient (IN) | payer MEDICARE, BC ==
[2024-11-06 11:10] LABS: #Basophils 0.03 10x3/uL (0.0-0.2); %Basophils 0.5 % (0.0-1.0); %Eosinophils 2.7 % (0.0-10.0); %Lymphocytes 16.4 % (21.0-51.0); %Monocytes 11.9 % (0.0-10.0); %Neutrophils 67.9 % (42.0-75.0); Hematocrit 30.8 % (36.0-47.0); Hemoglobin 10.1 g/dL (12.0-16.0); Mean Corpuscular HGB CONC 32.8 g/dL (32.0-36.0); Mean Corpuscular Hemoglobin 29.6 pg (27.0-31.0); Mean Corpuscular Volume 90.3 fL (78.0-98.0); Mean Platelet Volume 8.4 fL (7.4-10.4); Platelet Count 317 10x3/uL (130-400); Red Blood Cell (RBC) Count 3.41 mill/uL (4.20-5.40)
[2024-11-06 12:13] LABS: ALT (SGPT) 24 U/L (8-55); AST (SGOT) 23 U/L (5-34); Alkaline Phosphatase 66 U/L (40-110); Anion Gap 18 mmol/L (10-20); BUN (Urea Nitrogen) 39 mg/dL (7.0-18.7); Bilirubin, Total 0.4 mg/dL (0.2-1.2); Calc. Creatinine Clearance 0 mL/min (70-130); Calcium 9.3 mg/dL (7.8-10.44); Carbon Dioxide 26 mmol/L (22-29); Chloride 92 mmol/L (98-107); Estimated GFR 7; Globulin 4.1 g/dL (2.4-3.5); Glucose 88 mg/dL (70-105); Potassium 3.9 mmol/L (3.5-5.1); Protein, Total 7.1 g/dL (6.0-8.3); Sodium 132 mmol/L (136-145)
[2024-11-06] MEDS ORDERED: Heparin 10,000 UNITS/ 10 ML VIAL ONE ×2 (14:36→16:05)
[2024-11-06] MEDS ORDERED: PROPOFOL 20 ML ONE (15:56)
[2024-11-06] MEDS ORDERED: Lidocaine 1% PF 5 ML VIAL ONE (15:56)
[2024-11-06] MEDS ORDERED: Dexamethasone 4 mg/ml Vial ONE (15:57)
[2024-11-06] MEDS ORDERED: Ondansetron PF 4 MG/2 ML Vial ONE (15:57)
[2024-11-06] MEDS ORDERED: EPINEPHrine 1 MG/ML VIAL ONE (16:03)
[2024-11-06] MEDS ORDERED: Bupivacaine PF 0.5% 30 ML VIAL ONE (16:03)
[2024-11-06] MEDS ORDERED: Lidocaine 2% PF 5 ML VIAL ONE (16:05)
[2024-11-06] MEDS ORDERED: Ondansetron ODT 4 MG TAB PO PRN (17:01)
[2024-11-06] MEDS ORDERED: Bisacodyl 5 MG TAB PO PRN (17:01)
[2024-11-06] MEDS ORDERED: Senokot S 8.6-50 MG TAB PO PRN (17:01)
[2024-11-06] MEDS ORDERED: Acetaminophen 325 MG TAB PO PRN (17:01)
[2024-11-06] MEDS ORDERED: ePHEDrine Sulfate 50 MG/10 ML VIAL ONE (17:17)
[2024-11-06] MEDS ORDERED: Cefepime 2 GM in Sodium Chloride 0.9% 100 ML IVPB SCH (21:00)
[2024-11-06 21:05] VITALS: BMI 21.2
[2024-11-06] MEDS: OXcarbazepine 300 MG/5 ML UDCUP PO SCH (21:36)
[2024-11-06] MEDS: Heparin 5,000 UNITS/ML VIAL SC SCH (21:39)
[2024-11-07 01:37] LABS: HBSAB Concentration 87.11 mIU/mL; HBsAg Index 0.28 S/CO (0-0.99); Hep B Core Total Ab NONREACTIVE (NonReactive); Hep B Core Total Index 0.13 S/CO (0-0.79); Hep B Surf AB REACTIVE (NonReactive); Hep B Surf Ag NONREACTIVE S/CO (NonReactive); Hep C IgG Ab NONREACTIVE S/CO (NonReactive); Hep C Index 0.08 S/CO (0-0.79)
[2024-11-07] MEDS: Cefepime 1 GM in Sodium Chloride 0.9% 100 ML IVPB SCH (01:54)
[2024-11-07 05:55] LABS: #Basophils Less than 0.03 10x3/uL (0.0-0.2); %Basophils 0.3 % (0.0-1.0); %Eosinophils 0.4 % (0.0-10.0); %Lymphocytes 18.4 % (21.0-51.0); %Neutrophils 67.2 % (42.0-75.0); Hematocrit 24.5 % (36.0-47.0); Hemoglobin 7.9 g/dL (12.0-16.0); Mean Corpuscular HGB CONC 32.2 g/dL (32.0-36.0); Mean Corpuscular Hemoglobin 29.5 pg (27.0-31.0); Mean Corpuscular Volume 91.4 fL (78.0-98.0); Mean Platelet Volume 8.8 fL (7.4-10.4); Platelet Count 267 10x3/uL (130-400); RBC Distribution Width 12.9 % (11.5-14.5); Red Blood Cell (RBC) Count 2.68 mill/uL (4.20-5.40)
[2024-11-07] MEDS: Levothyroxine Sodium 112 MCG TAB PO SCH (06:21)
[2024-11-07 07:15] LABS: Anion Gap 15 mmol/L (10-20); BUN (Urea Nitrogen) 25 mg/dL (7.0-18.7); Calc. Creatinine Clearance 9 mL/min (70-130); Calcium 7.9 mg/dL (7.8-10.44); Carbon Dioxide 23 mmol/L (22-29); Chloride 101 mmol/L (98-107); Estimated GFR 10; Glucose 81 mg/dL (70-105); Potassium 3.9 mmol/L (3.5-5.1); Sodium 135 mmol/L (136-145)
[2024-11-07] MEDS: OXcarbazepine 300 MG/5 ML UDCUP PO SCH ×3 (09:26→17:11)
[2024-11-07] MEDS ORDERED: Bupivacaine PF 0.5% 30 ML VIAL ONE (11:21)
[2024-11-07] MEDS ORDERED: EPINEPHrine 1 MG/ML VIAL ONE (11:21)
[2024-11-07] MEDS ORDERED: fentaNYL PF 100 MCG/2 ML SYRINGE ONE (11:21)
[2024-11-07] MEDS ORDERED: PROPOFOL 20 ML ONE (11:21)
[2024-11-07] MEDS ORDERED: Heparin 10,000 UNITS/ 10 ML VIAL ONE (11:21)
[2024-11-07] MEDS ORDERED: Lidocaine 2% PF 5 ML VIAL ONE ×2 (11:21→11:23)
[2024-11-07] MEDS ORDERED: CEFAZOLIN 2 GM VIAL ONE (11:34)
[2024-11-07] MEDS ORDERED: CEFAZOLIN 1 GM VIAL ONE (12:17)
[2024-11-07] MEDS ORDERED: Dexamethasone 4 mg/ml Vial ONE (12:18)
[2024-11-07] MEDS ORDERED: Ondansetron PF 4 MG/2 ML Vial ONE (12:18)
[2024-11-07] MEDS: Acetaminophen 650 MG/20.3 ML UDCUP PO PRN (13:58)
[2024-11-07] MEDS ORDERED: Acetaminophen W/ Codeine 5 ML UDCUP PO PRN (15:28)
[2024-11-07] MEDS: Acetaminophen 650 MG/20.3 ML UDCUP PO SCH (16:04)
[2024-11-07] MEDS: Acetaminophen/Codeine 30-300mg Tablet PO PRN (16:09)
[2024-11-07] MEDS: fentaNYL 50 mcg/mL 1 mL Vial SLOW IVP SCH (17:25)
[2024-11-08] MEDS ORDERED: Sodium Chloride 0.9% 1,000 ML IV SCH (01:45)
[2024-11-08] MEDS: Sodium Chloride 0.9% 500 ML IV SCH (02:13)
[2024-11-08 04:42] LABS: #Basophils Less than 0.03 10x3/uL (0.0-0.2); %Basophils 0.3 % (0.0-1.0); %Eosinophils 1.1 % (0.0-10.0); %Lymphocytes 25.3 % (21.0-51.0); %Monocytes 16.7 % (0.0-10.0); %Neutrophils 56.1 % (42.0-75.0); Hematocrit 22.6 % (36.0-47.0); Hemoglobin 7.2 g/dL (12.0-16.0); Mean Corpuscular HGB CONC 31.9 g/dL (32.0-36.0); Mean Corpuscular Hemoglobin 29.6 pg (27.0-31.0); Mean Platelet Volume 8.6 fL (7.4-10.4); Platelet Count 230 10x3/uL (130-400); RBC Distribution Width 12.9 % (11.5-14.5); Red Blood Cell (RBC) Count 2.43 mill/uL (4.20-5.40)
[2024-11-08] MEDS: Albumin 25% 25 GM (100 mL) BOT IVPB SCH (04:49)
[2024-11-08] MEDS: Sodium Chloride 0.9% 250 ML IV SCH (04:58)
[2024-11-08] MEDS ORDERED: Epoetin (ESRD) 20,000 UNITS/ML MDV SC SCH (05:00)
[2024-11-08 05:17] LABS: ALT (SGPT) 6 U/L (8-55); AST (SGOT) 39 U/L (5-34); Albumin 2.3 g/dL (3.5-5.0); Alkaline Phosphatase 56 U/L (40-110); Anion Gap 12 mmol/L (10-20); BUN (Urea Nitrogen) 10 mg/dL (7.0-18.7); Bilirubin, Total 0.3 mg/dL (0.2-1.2); Calc. Creatinine Clearance 14 mL/min (70-130); Calcium 7.3 mg/dL (7.8-10.44); Carbon Dioxide 25 mmol/L (22-29); Chloride 104 mmol/L (98-107); Estimated GFR 18; Glucose 84 mg/dL (70-105); Potassium 3.6 mmol/L (3.5-5.1); Protein, Total 5.3 g/dL (6.0-8.3); Sodium 137 mmol/L (136-145)
[2024-11-08] MEDS: Midodrine HCl 5 MG TAB PO SCH ×2 (06:03→15:44)
[2024-11-08] MEDS: Calcium Acetate 667 MG CAP PO SCH (08:02)
[2024-11-08 08:53] LABS: #Basophils 0.03 10x3/uL (0.0-0.2); %Basophils 0.6 % (0.0-1.0); %Eosinophils 1.5 % (0.0-10.0); %Lymphocytes 36.8 % (21.0-51.0); %Monocytes 12.5 % (0.0-10.0); %Neutrophils 48.2 % (42.0-75.0); Hematocrit 20.3 % (36.0-47.0); Hemoglobin 6.3 g/dL (12.0-16.0); Mean Corpuscular Hemoglobin 29.4 pg (27.0-31.0); Mean Corpuscular Volume 94.9 fL (78.0-98.0); Mean Platelet Volume 8.7 fL (7.4-10.4); Platelet Count 212 10x3/uL (130-400); RBC Distribution Width 12.9 % (11.5-14.5); Red Blood Cell (RBC) Count 2.14 mill/uL (4.20-5.40)
[2024-11-08] MEDS ORDERED: Heparin 10,000 UNITS/ 10 ML VIAL ONE (09:57)
[2024-11-08 12:56] LABS: Hematocrit 23.7 % (36.0-47.0); Hemoglobin 7.6 g/dL (12.0-16.0)
[2024-11-08] MEDS: EPOETIN ALFA-EPBX (ESRD) 3,000 UNITS/ML VIAL SC SCH (15:14)
[2024-11-08] MEDS: EPOETIN ALFA-EPBX (ESRD) 2,000 UNITS/ML VIAL SC SCH (15:14)
[2024-11-08 18:56] LABS: Hematocrit 28.2 % (36.0-47.0); Hemoglobin 8.9 g/dL (12.0-16.0)
[2024-11-08 23:41] LABS: Hemoglobin 8.3 g/dL (12.0-16.0)
[2024-11-09 05:03] LABS: #Basophils Less than 0.03 10x3/uL (0.0-0.2); %Basophils 0.3 % (0.0-1.0); %Eosinophils 2.7 % (0.0-10.0); %Lymphocytes 23.5 % (21.0-51.0); %Monocytes 17.7 % (0.0-10.0); %Neutrophils 55.2 % (42.0-75.0); Hematocrit 26.1 % (36.0-47.0); Hemoglobin 8.2 g/dL (12.0-16.0); Mean Corpuscular HGB CONC 31.4 g/dL (32.0-36.0); Mean Corpuscular Hemoglobin 29.5 pg (27.0-31.0); Mean Corpuscular Volume 93.9 fL (78.0-98.0); Mean Platelet Volume 8.9 fL (7.4-10.4); Platelet Count 234 10x3/uL (130-400); RBC Distribution Width 12.8 % (11.5-14.5); Red Blood Cell (RBC) Count 2.78 mill/uL (4.20-5.40)
[2024-11-09 05:14] LABS: Anion Gap 11 mmol/L (10-20); BUN (Urea Nitrogen) 9 mg/dL (7.0-18.7); Calc. Creatinine Clearance 15 mL/min (70-130); Calcium 8.2 mg/dL (7.8-10.44); Carbon Dioxide 28 mmol/L (22-29); Chloride 103 mmol/L (98-107); Estimated GFR 20; Glucose 78 mg/dL (70-105); Potassium 4.2 mmol/L (3.5-5.1); Sodium 138 mmol/L (136-145)
[2024-11-09 09:22] VITALS: TEMP 98.9
[2024-11-09 12:44] VITALS: BP 108/66
== END 2024-11-09 14:26 | disposition home or self-care (01) | DRG 907 ==
LOC: ERS 10:10 → T4-B 15:27 → OBSVTOIN 11-07 14:12
PROVIDERS: ADMIT Internal Medicine; ATTEND Internal Medicine
PROC: 0JH60XZ Insertion of Tunneled Vascular Access Device into Chest Subcutaneous Tissue and Fascia, Open Approach (ICD-10-PCS; 2024-11-06)
PROC: 02HV33Z Insertion of Infusion Device into Superior Vena Cava, Percutaneous Approach (ICD-10-PCS; 2024-11-06)
PROC: B5181ZA Fluoroscopy of Superior Vena Cava using Low Osmolar Contrast, Guidance (ICD-10-PCS; 2024-11-06)
PROC: B548ZZA Ultrasonography of Superior Vena Cava, Guidance (ICD-10-PCS; 2024-11-06)
PROC: 0WPG03Z Removal of Infusion Device from Peritoneal Cavity, Open Approach (ICD-10-PCS; principal; 2024-11-07)
DX: T85.71XA Infection and inflammatory reaction due to peritoneal dialysis catheter, initial encounter (principal); K65.9 Peritonitis, unspecified; N18.6 End stage renal disease; I12.0 Hypertensive chronic kidney disease with stage 5 chronic kidney disease or end stage renal disease; F84.2 Rett's syndrome; D62 Acute posthemorrhagic anemia; Y73.2 Prosthetic and other implants, materials and accessory gastroenterology and urology devices associated with adverse incidents; Y83.8 Other surgical procedures as the cause of abnormal reaction of the patient, or of later complication, without mention of misadventure at the time of the procedure; G40.909 Epilepsy, unspecified, not intractable, without status epilepticus; D63.1 Anemia in chronic kidney disease; E03.9 Hypothyroidism, unspecified; E78.5 Hyperlipidemia, unspecified; Z99.2 Dependence on renal dialysis; Z90.49 Acquired absence of other specified parts of digestive tract; B96.5 Pseudomonas (aeruginosa) (mallei) (pseudomallei) as the cause of diseases classified elsewhere
CPT/HCPCS: 36415; 71045; 80048; 80053; 83605; 85025; 86704; 86706; 86803; 86850; 86900; 86901; 87040; 87070; 87071; 87102; 87205; 87340; 96372; 96374; A6258; C1750; C1752; C1769; G0378; J0171; J0665; J0690; J0692; J1100; J1644; J2405; J2704; J7030; P9047; Q5105

== ENCOUNTER 2025-10-24 14:49 | Outpatient (CLI) | payer MEDICARE, BC, MEDICAID | END 2025-10-24 14:50 | disposition home or self-care (01) | LOC: BICRAD 14:49 | PROVIDERS: ATTEND Internal Medicine | DX: M54.9 Dorsalgia, unspecified (principal); M41.9 Scoliosis, unspecified; R91.8 Other nonspecific abnormal finding of lung field; N20.0 Calculus of kidney | CPT/HCPCS: 72072; 72100 ==

== ENCOUNTER 2025-10-25 15:30 | Outpatient (CLI) | payer MEDICARE, BC, MEDICAID | END 2025-10-25 15:31 | disposition home or self-care (01) | LOC: BICRAD 15:30 | PROVIDERS: ATTEND Internal Medicine | DX: R05.9 Cough, unspecified (principal) | CPT/HCPCS: 71046 ==